=== PATIENT | female | born 1950 | race Caucasian/White ===

== ENCOUNTER 2018-02-01 13:38 | Inpatient (IN) | payer MEDICARE, BC ==
[2018-02-01] MEDS ORDERED: Famotidine 20 MG/2 ML SDV IVPUSH ONE (13:44)
[2018-02-01] MEDS ORDERED: Aspirin 81 MG Tab.Chew CHEW ONE (13:44)
[2018-02-01] MEDS ORDERED: Ticagrelor 90 MG Tab PO ONE (13:44)
--- NOTE | 2018-02-01 13:44 | EDM.PDOC ---
ED HPI GENERAL MEDICAL PROBLEM - General Chief Complaint: Chest Pain Stated Complaint: CP, n&V Time Seen by Provider: 02/01/18 13:40 Source of Information: Reports: Family (Spine, [id number], Odalys), Old Records ([facility] chart/EMR) History Limitations: Reports: No Limitations - History of Present Illness INITIAL COMMENTS - FREE TEXT/NARRATIVE: The patient was brought to the emergency room via private automobile by her and [id number] for evaluation of multiple complaints, including nonspecific retrosternal chest discomfort radiating to the mid back since about noon today with symptoms associated with some diaphoresis, moderate to severe dizziness, mild orthostasis and recurrent nausea/emeses with 6-10 previous episodes of emesis, including 2 episodes in the emergency room. The patient did have some dizziness and mild chest pain-type symptoms with onset of dizziness about 4 days ago. with symptoms intermittent in nature. The patient did have some nausea without emesis yesterday with no known exposure to infection, food poisoning, etc.. The patient denies any heart flutter, orthopnea, paresthesias, recent decreased exercise tolerance, or any other anginal-type symptoms. No recent history of abdominal pain, heartburn, diarrhea, melena, gross hematochezia, or any food intolerance, including fatty foods, etc.. She did have a normal bowel movement yesterday. The patient also denies any recent fever , cough, wheezing, dyspnea, etc.. No history of recent headaches, visual changes , diplopia, change in mental status, or other change in neurological status. The patient's does have diabetes and does check his Accu-Cheks with the patient having a home Accu-Chek of only 42 mg percent at about 13:00 hours, however glucose monitor strips are somewhat old by their history. No history of recent headaches, visual changes, diplopia, change in mental status, or other change in neurological status. Onset: Gradual Onset Date: 01/29/18 Duration: Getting Worse, Intermittent Location: Reports: Neck, Chest, Abdomen, Back (Mid posterior thoracic region as above), Radiates to. Denies: Head, Face, Pelvis, Upper Extremity, Left, Upper Extremity, Right Quality: Reports: Ache, Stabbing (Brief in nature with episodes of emesis.) Severity: Mild Improves with: Reports: None Worsens with: Reports: None Context: Reports: Other (As above) Associated Symptoms: Reports: Chest Pain, Diaphoresis, Nausea/Vomiting, Weakness (Nonspecific generalized). Denies: Confusion, Cough, Fever/Chills, Headaches, Loss of Appetite, Malaise, Seizure, Shortness of Breath, Syncope Treatments MEDICAL CLAIMS ASSISTANT: Reports: Other (see below) (None) Middle Chest Pain Score (Numeric/FACES): 5 Generalized Pain Score (Numeric/FACES): 5 - Related Data Allergies Allergy/AdvReac Type Severity Reaction Status Date / Time sulfamethoxazole Allergy Difficulty Verified 02/01/18 13:40 [From Bactrim] Swallowing trimethoprim [From Bactrim] Allergy Difficulty Verified 02/01/18 13:40 Swallowing Home Meds: Home Meds Citalopram Hydrobromide [Celexa] 40 mg PO DAILY 02/01/18 [History] Flaxseed Oil 1 cap PO DAILY 02/01/18 [History] Lutein/Minerals/Vit A,C & E [Ocuvite] 1 tab PO DAILY 02/01/18 [History] Multivit with Calcium,Iron,Min [Multivitamins Q-[id number]] 1 tab PO DAILY [History] Past Medical History HEENT History: Reports: Impaired Vision, Other (See Below). Denies: Allergic Rhinitis, Cataract, Glaucoma, Hard of Hearing, Macular Degeneration, Retinal Detachment Other HEENT History: Patient wears glasses. Dry eye syndrome. Cardiovascular History: Reports: High Cholesterol, Other (See Below). Denies: Afib, Aneurysm, Arrhythmia, Blood Clots/VTE/DVT, CAD, Heart Failure, Heart Murmur, Hypertension, [place], Syncope Other Cardiovascular History: Borderline Hyperlipidemia with no current medical therapy. Respiratory History: Denies: Asthma, COPD, Intubation, Previous, PE, Pneumothorax, Sleep Apnea Gastrointestinal History: Reports: Other (See Below). Denies: Bowel Obstruction , Celiac Disease, Cholelithiasis, Chronic Constipation, Chronic Diarrhea, Fecal Incontinence, Gastritis, GERD, GI Bleed, Hepatitis, Hiatal Hernia, Inflammatory Bowel Disease, Irritable Bowel Syndrome, Jaundice, Pancreatitis, PUD Other Gastrointestinal History: Benign small left-sided hepatic cysts by CT scan in September 2015 as below Genitourinary History: Reports: Hydronephrosis, UTI, Recurrent, Other (See Below ). Denies: Acute Renal Failure, Chronic Renal Insuffiency, Renal Calculus, STD , Urinary Incontinence Other Genitourinary History: History of benign borderline bilateral hydronephrosis by abdominal ultrasound in August 2015 with subsequent negative workup as below AUTOMAT WATCHER History: Reports: . Denies: Dysfunctional Uterine Bleeding, Endometriosis, Fibroids, Polycystic Ovaries, Spontaneous : 3 Para: 3 LMP (Approximate): Other (See Below) Other OB/BYN History: Menopause about age 55. Full term without complications during pregnancies or deliveries Musculoskeletal History: Reports: Arthritis, Back Pain, Chronic, Neck Pain, Chronic, Osteoarthritis, Osteoporosis, Other (See Below). Denies: Amputation, Fracture, Gout, RA, SLE Other Musculoskeletal History: Mild scoliosis Neurological History: Reports: Other (See Below). Denies: Cerebral Aneurysms, Concussion, CVA, Headaches, Chronic, Head Trauma, Migraines, MS, Neuropathy, Peripheral, Parkinson's, Seizure, TIA Other Neuro History: Restless leg syndrome by history with no current medical therapy Psychiatric History: Reports: Anxiety, Depression, Psych Hospitalization(s). Denies: Abuse, Victim of, ADD, ADHD, Addiction, PTSD, Suicide Attempt, Suicidal Ideation Endocrine/Metabolic History: Reports: Osteopenia, Osteoporosis. Denies: Diabetes, Gestational, Diabetes, Type I, Diabetes, Type II, Diabetes Mellitus, Type 3c, Hypothyroidism, IDDM Hematologic History: Reports: None. Denies: Anemia, B12 Deficiency, Blood Transfusion(s), Iron Deficiency Immunologic History: Reports: None. Denies: AIDS, HIV, SLE Oncologic (Cancer) History: Reports: None. Denies: Basal Cell Carcinoma, Breast , Cervix, Hodgkin's Lymphoma, Leukemia, Lymphoma, Malignant Melanoma, Non- Hodgkin's Lymphoma, Ovarian, Squamous Cell Carcinoma, Uterine Dermatologic History: Reports: None. 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 Denies : C-Difficile, Meningitis, Mononucleosis, MRSA, Mumps, Pertussis (Whooping Cough ), Rheumatic Fever, Rubella, Scarlet Fever, TB, VRE - Past Surgical History Head Surgeries/Procedures: Reports: None HEENT Surgical History: Reports: None. Denies: Adenoidectomy, Cataract Surgery , Eye Surgery, Laser Surgery, LASIK, Myringotomy w Tube(s), Naso-Sinus Surgery, Oral Surgery, Tonsillectomy Cardiovascular Surgical History: Reports: None. Denies: Varicose Respiratory Surgical History: Reports: None. Denies: Thoracentesis GI Surgical History: Reports: None. Denies: Appendectomy, Cholecystectomy, Colonoscopy, EGD, Hernia, Abdominal, Hernia, Inguinal, Hernia Repair/Other Female Surgical History: Reports: Cystoscopy, Other (See Below). Denies: Breast Biopsy, Section, D&C, Salpingo-Oophorectomy, Tubal Ligation Other Female Surgeries/Procedures: Possible cystoscopy at about age 11 secondary to recurrent UTIs Endocrine Surgical History: Reports: None. Denies: Thyroid Biopsy Neurological Surgical History: Denies: C-Spine, Discectomy, Laminectomy, Lumbar Spine, Sacral Spine, Spinal Fusion, Thoracic Spine, Vertebroplasty Musculoskeletal Surgical History: Reports: None. Denies: Arthroscopic Procedure , Carpal Tunnel, Ganglion Cyst, Joint Replacement, ORIF, Shoulder Surgery Oncologic Surgical History: Reports: None Dermatological Surgical History: Reports: Other (See Below) Other Dermatological Surgeries/Procedures: Excision of benign sebaceous cyst from the head 2 - Past Imaging History Past Imaging History: Reports: CAT Scan (CT scan of the abdomen and pelvis on ), DEXA Scan (03/26/06), Mammogram (Last mammogram on 04/03/17), Ultrasound ( Abdominal and pelvic ultrasounds with additional ultrasound of the abdominal aorta on 08/20/05) Social & Family History - Family History HEENT: Reports: Glaucoma, Macular Degeneration, Other (See Below). Denies: Retinal Detachment Other HEENT Family History: Mother with glaucoma and macular degeneration. Sister with corneal transplant at about age 73 Cardiac: Reports: CAD, High Cholesterol, Hypertension, [place], Other (See Below). Denies: Afib, Arrhythmia, Blood Clots/VTE/DVT, Bypass, Heart Failure, Stent, Syncope Other Cardiac Family History: Father with possible acute [place] in his 70s. Hyperlipidemia and hypertension in mom and 3 sons. Respiratory: Reports: Asthma, Other (See Below). Denies: COPD, PE, Pneumothorax , Sleep Apnea Other Respiratory Family Hisory: Son and granddaughter with asthma. Father with COPD with history of tobacco use GI: Reports: Cholelithiasis, Other (See Below). Denies: Celiac Disease, Colon Polyps, GERD, GI bleed, Inflammatory Bowel Disease, Irritable Bowel Syndrome, PUD Other GI Family History: Mother with nonspecific cholagenous colitis. Sisters 2 with cholecystectomies. : Reports: Renal Calculus, Renal Disease/Insufficiency, Other (See Below). Denies: Dialysis Other Family History: Father with history of nephrolithiasis and congenital renal agenesis. Granddaughter with ureteral duplex OBGYN: Reports: Fibroids, Other (See Below). Denies: Endometriosis, Recurrent Spontaneous Other OBGYN Family History: Mother with history of hysterectomy secondary to fibroids Musculoskeletal: Reports: None. Denies: Arthritis, Gout, Osteoarthritis, RA, SLE Neurological: Reports: Alzheimers Disease, CVA, Dementia, Seizure, TIA, Other ( See Below). Denies: Migraines, MS, Parkinson's Other Neurological Family History: Mother with history of restless leg syndrome , CVAs and TIAs with history of organic brain syndrome. Psychiatric: Denies: Abuse, Victim of, ADD, ADHD, Anxiety, Depression, Psych Hospitalization(s), Psychosis, PTSD, Suicide Attempt Endocrine/Metabolic: Reports: Diabetes, Type I, Hypothyroidism, IDDM, Other ( See Below). Denies: Diabetes, type II Other Endocrine/Metabolic Family History: Granddaughter with type I IDDM diagnosed at age 9. Sister with hypothyroidism. Hematologic: Reports: None. Denies: Anemia, SLE, Transfusion Reaction Immunologic: Reports: None. Denies: AIDS, HIV, SLE Dermatologic: Reports: None. Denies: Eczema, Psoriasis Oncologic: Reports: Colon, Metastatic, Other (See Below). Denies: Breast, Hodgkin's Lymphoma, Leukemia, Lymphoma, Non-Hodgkin's Lymphoma, Ovarian, Skin, Uterine Other Oncologic Family History: Father with fatal unknown type of primary cancer with pulmonary metastases in his late 70s. Maternal grandfather with fatal colon cancer in his 80s. - Tobacco Use Smoking Status *Q: Never Smoker Tobacco Use Within Last Twelve Months: No Used Tobacco, but Quit: No Smoking Cessation Information Provided To Patient: No Second Hand Smoke Exposure: No Second Hand Smoke Education Provided: No - Caffeine Use Caffeine Use: Reports: Soda (4 sodas per day). Denies: Coffee, Energy Drinks, Other - Alcohol Use Alcohol Use History: Yes Days Per Week of Alcohol Use: 0 (No previous DWIs, problems with alcohol abuse, etc.) Number of Drinks Per Day: 1 Number of Drinks Per Day Comment: Usually half a wine cooler for holidays Total Drinks Per Week: 0 Alcohol Use in Last Twelve Months: Yes Alcohol Use Frequency: Rarely - Recreational Drug Use Recreational Drug Use: No Drug Use in Last 12 Months: No Recreational Drug Type: Denies: Amphetamines (Speed), Cocaine, Heroin, LSD (Acid ), Marijuana/Hashish, Methamphetamine, Morphine, Oxycodone - Living Situation & Occupation Living situation: Reports: (1971, 3 children) 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 ED EXAM, GENERAL - Physical Exam Exam: See Below Exam Limited By: No Limitations General Appearance: Alert, WD/WN, No Apparent Distress, Anxious (Mild to moderate) Eye Exam: Bilateral Eye: EOMI, Normal Inspection (No nystagmus. Patient wearing glasses), PERRL Ears: Normal External Exam, Normal Canal, Hearing Grossly Normal, Normal TMs Nose: Normal Inspection, Normal Mucosa, No Blood. No: Clear Rhinorrhea Throat/Mouth: Normal Inspection, Normal Lips, Normal Teeth, Normal Gums, Normal Oropharynx, Normal Voice, No Airway Compromise. No: Dysphagia, Perioral Cyanosis Head: Atraumatic, Normocephalic. No: Facial Swelling, Facial Tenderness, Sinus Tenderness Neck: Normal Inspection, Supple, Non-Tender, Full Range of Motion. No: Carotid Bruit, Lymphadenopathy (L), Lymphadenopathy (R), Thyromegaly Respiratory/Chest: No Respiratory Distress, Lungs Clear, Normal Breath Sounds, No Accessory Muscle Use, Chest Non-Tender. No: Pleural Rub, Retractions Cardiovascular: Normal Peripheral Pulses, Regular Rate, Rhythm, No Edema, No Gallop, No JVD, No Murmur, No Rub. No: Gallop/S3, Gallop/S4, Friction Rub Peripheral Pulses: 2+: Radial (L), Radial (R), Dorsalis Pedis (L), Dorsalis Pedis (R) GI/Abdominal: Normal Bowel Sounds, Soft, Non-Tender, No Organomegaly, No Distention, No Abnormal Bruit, No Mass, Pelvis Stable. No: Guarding (Female) Exam: Deferred Rectal (Female) Exam: Deferred Back Exam: Normal Inspection, Full Range of Motion. No: CVA Tenderness (L), CVA Tenderness (R), Muscle Spasm Extremities: Normal Inspection, Normal Range of Motion, Non-Tender, No Pedal Edema, Normal Capillary Refill. No: Hilary's Sign Neurological: Alert, Oriented, CN II-XII Intact, Normal Cognition, Normal Gait, Normal Reflexes (Negative Babinski's), No Motor/Sensory Deficits Psychiatric: Anxious (Mild to moderate), Depressed Mood (Borderline with adequate eye contact) Skin Exam: Warm, Dry, Intact, Normal Color, No Rash. No: Diaphoretic, Ecchymosis, Wound/Incision Lymphatic: No Adenopathy EKG INTERPRETATION EKG Date: 02/01/18 Time: 13:43 Rhythm: NSR Rate (Beats/Min): 75 [place]: Normal (Left cardiac axis) P-Wave: Enlarged (Mild diffuse biphasic P waves with mild poor R-wave progression in the anterior leads) QRS: Normal (QRS interval of 0.08 seconds representing repolarization changes with T-wave inversion in leads aVL, V1, and V2) ST-T: Other (As above) QT: Normal [place]/PQ Interval: 0.18 seconds Comparison: NA - No Prior EKG EKG Interpretation Comments: 1. Possible anterior wall cardiac ischemia 2. Repolarization changes 3. Borderline left atrial enlargement Course - Vital Signs Last Recorded V/S: Last Vital Signs Temp 35.9 C 02/01/18 13:40 Pulse 65 02/01/18 14:16 Resp 15 02/01/18 14:16 BP 144/91 H 02/01/18 14:16 Pulse Ox 100 02/01/18 14:16 Vital Signs - 24 hr 02/01/18 02/01/18 02/01/18 13:40 14:16 14:30 Temperature [ 35.9 C Temporal] Pulse, 63 65 68 Peripheral [ Right Pulse Oximetry] Respiratory 18 15 14 Rate Blood Pressure 135/67 144/91 H 154/66 H [Right Upper Arm] O2 Sat by Pulse 100 100 100 Oximetry 02/01/18 14:45 Temperature [ Temporal] Pulse, 60 Peripheral [ Right Pulse Oximetry] Respiratory 13 Rate Blood Pressure 136/60 [Right Upper Arm] O2 Sat by Pulse 100 Oximetry - Orders/Labs/Meds Orders: Active Orders 24 hr Category Date Time Status Blood Glucose Check, Bedside [RC] STAT Care 02/01/18 13:49 Active Cardiac Monitoring [RC] . DIRECTED Care 02/01/18 13:44 Active EKG Documentation Completion [RC] ASDIRECTED Care 02/01/18 13:44 Active Oxygen Therapy, ED [RC] CONTINUOUS Care 02/01/18 13:44 Active Peripheral IV Care [RC] . DIRECTED Care 02/01/18 13:44 Active Pulse Oximetry [RC] CONTINUOUS Care 02/01/18 13:44 Active Up With Assistance [RC] PFP Care 02/01/18 13:44 Active Vital Signs [RC] PFP Care 02/01/18 13:44 Active Nothing per Oral Now Diet [DIET] Diet 02/01/18 Breakfast Active Abdomen Series w Chest 1V [CR] Stat Exams 02/01/18 13:48 Ordered Sodium Chloride 0.9% [Saline Flush] Med 02/01/18 13:44 Active 10 ml FLUSH ASDIRECTED PRN Obtain Past Medical Record [OM.PC] Urgent Oth 02/01/18 13:44 Active Peripheral IV Insertion Adult [OM.PC] Stat Oth 02/01/18 13:44 Ordered Resuscitation Status Stat Resus Stat 02/01/18 13:44 Ordered Medication Orders Sodium Chloride (Saline Flush) 10 ml FLUSH ASDIRECTED PRN PRN Reason: Keep Vein Open Last Admin: 02/01/18 14:26 Dose: 10 ml Admin: 02/01/18 13:51 Dose: 10 ml Labs: Laboratory Tests 02/01/18 02/01/18 02/01/18 Range/Units 13:42 13:42 13:42 WBC 7.3 (4.0-10.2) K/uL RBC 4.06 (3.77-5.09) M/uL Hgb 11.4 L (11.7-15.5) g/dL Hct 33.9 L (34.0-46.0) % MCV 83.5 L (84.0-98.0) fL MCH 28.1 L (28.2-33.3) pg MCHC 33.6 (31.7-36.0) g/dL RDW 13.3 (11.2-14.1) % Plt Count 234 (150-350) K/uL Neut % (Auto) 55.2 (45.0-80.0) % Lymph % (Auto) 35.1 (10.0-50.0) % [place] % (Auto) 8.3 (2.0-14.0) % Eos % (Auto) 1.0 (0.0-5.0) % Baso % (Auto) 0.4 (0.0-2.0) % Neut # (Auto) 4.05 (1.40-7.00) K/uL Lymph # (Auto) 2.57 (0.50-3.50) K/uL [place] # (Auto) 0.61 (0.00-1.00) K/uL Eos # (Auto) 0.07 (0.00-0.50) K/uL Baso # (Auto) 0.03 (0.00-0.20) K/uL PT 10.7 (9.8-11.7) SEC INR 1.0 APTT 22.9 (22.1-29.8) SEC D-Dimer, Quantitative < 100 (0-400) ng/mL Sodium (136-145) mmol/L Potassium (3.5-5.1) mmol/L Chloride (98-107) mmol/L Carbon Dioxide (21.0-32.0) mmol/L BUN (7-18) mg/dL Creatinine (0.51-1.17) mg/dL Est Cr Clr Drug Dosing mL/min Estimated GFR (MDRD) mL/min Glucose (74-106) mg/dL Lactic Acid (0.4-2.0) mmol/L Uric Acid (2.6-7.2) mg/dL Calcium (8.5-10.1) mg/dL Magnesium (1.8-2.4) mg/dL Total Bilirubin (0.2-1.0) mg/dL AST (15-37) U/L ALT (12-78) U/L Alkaline Phosphatase (46-116) IU/L Creatine Kinase (26-308) U/L Creatine Kinase Index (0.0-2.5) % CK-MB (CK-2) (0.00-3.60) ng/mL Troponin I (0.000-0.056) ng/mL NT-Pro-B Natriuret Pep (0-125) pg/mL Total Protein (6.4-8.2) g/dL Albumin (3.4-5.0) g/dL Amylase (25-115) U/L Lipase (73-393) U/L TSH, Ultra Sensitive (0.358-3.740) mIU/mL 02/01/18 02/01/18 Range/Units 13:42 13:42 WBC (4.0-10.2) K/uL RBC (3.77-5.09) M/uL Hgb (11.7-15.5) g/dL Hct (34.0-46.0) % MCV (84.0-98.0) fL MCH (28.2-33.3) pg MCHC (31.7-36.0) g/dL RDW (11.2-14.1) % Plt Count (150-350) K/uL Neut % (Auto) (45.0-80.0) % Lymph % (Auto) (10.0-50.0) % [place] % (Auto) (2.0-14.0) % Eos % (Auto) (0.0-5.0) % Baso % (Auto) (0.0-2.0) % Neut # (Auto) (1.40-7.00) K/uL Lymph # (Auto) (0.50-3.50) K/uL [place] # (Auto) (0.00-1.00) K/uL Eos # (Auto) (0.00-0.50) K/uL Baso # (Auto) (0.00-0.20) K/uL PT (9.8-11.7) SEC INR APTT (22.1-29.8) SEC D-Dimer, Quantitative (0-400) ng/mL Sodium 140 (136-145) mmol/L Potassium 3.9 (3.5-5.1) mmol/L Chloride 103 (98-107) mmol/L Carbon Dioxide 21.4 (21.0-32.0) mmol/L BUN 16 (7-18) mg/dL Creatinine 0.68 (0.51-1.17) mg/dL Est Cr Clr Drug Dosing 67.32 mL/min Estimated GFR (MDRD) > 60 mL/min Glucose 119 H (74-106) mg/dL Lactic Acid 2.6 H (0.4-2.0) mmol/L Uric Acid 2.7 (2.6-7.2) mg/dL Calcium 9.0 (8.5-10.1) mg/dL Magnesium 1.9 (1.8-2.4) mg/dL Total Bilirubin 0.4 (0.2-1.0) mg/dL AST 30 (15-37) U/L ALT 31 (12-78) U/L Alkaline Phosphatase 77 (46-116) IU/L Creatine Kinase 71 (26-308) U/L Creatine Kinase Index 1.5 (0.0-2.5) % CK-MB (CK-2) 1.10 (0.00-3.60) ng/mL Troponin I 0.000 (0.000-0.056) ng/mL NT-Pro-B Natriuret Pep 77 (0-125) pg/mL Total Protein 7.4 (6.4-8.2) g/dL Albumin 4.0 (3.4-5.0) g/dL Amylase 62 (25-115) U/L Lipase 120 (73-393) U/L TSH, Ultra Sensitive 1.712 (0.358-3.740) mIU/mL Stat Accu-Chek on patient's arrival 111 mg percent Meds: Medications Generic Name Dose Route Start Last Admin Trade Name Freq PRN Reason Stop Dose Admin Sodium Chloride 10 ml 02/01/18 13:44 02/01/18 14:26 Saline Flush FLUSH 10 ml ASDIRECTED PRN Administration Keep Vein Open Discontinued Medications Generic Name Dose Route Start Last Admin Trade Name Freq PRN Reason Stop Dose Admin Aspirin 324 mg 02/01/18 13:44 02/01/18 13:53 Aspirin CHEW 02/01/18 13:45 324 mg ONETIME ONE Administration Aspirin Confirm 02/01/18 13:52 02/01/18 13:58 Aspirin Administered 02/01/18 13:53 Not Given Dose 324 mg .ROUTE .STK-MED ONE Famotidine 40 mg 02/01/18 13:44 02/01/18 13:52 Pepcid IVPUSH 02/01/18 13:45 40 mg ONETIME ONE Administration Meclizine HCl 25 mg 02/01/18 14:22 02/01/18 14:25 Antivert PO 02/01/18 14:23 25 mg ONETIME ONE Administration Metoclopramide HCl 10 mg 02/01/18 14:22 02/01/18 14:26 Reglan IVPUSH 02/01/18 14:23 10 mg ONETIME ONE Administration Ondansetron HCl 4 mg 02/01/18 13:46 02/01/18 13:51 Zofran IVPUSH 02/01/18 13:47 4 mg ONETIME ONE Administration Ticagrelor 180 mg 02/01/18 13:44 02/01/18 13:53 Brilinta PO 02/01/18 13:45 180 mg ONETIME ONE Administration - Radiology Interpretation Free Text/Narrative:: Acute abdominal x-rays shows evidence of moderate diffuse stool with nonspecific bowel gaseous pattern, however no evidence of free air, ileus, obstruction, intra-abdominal calcifications, etc. No cardiomegaly, pulmonary infiltrates, CHF, COPD, pneumothorax, etc. Application Development Project Manager shows normal sinus rhythm with average heart rate in the 60s and 70s with no ectopy or arrhythmia Departure - Departure Time of Disposition: 15:08 Disposition: Admitted As Inpatient 67 Clinical Impression: Mixed anxiety depressive disorder, Lactic acid increased, Restless leg syndrome , Osteoarthritis Chest pain Qualifiers: Chest pain type: unspecified Qualified Code(s): R07.9 - Chest pain, unspecified Nausea and vomiting Qualifiers: Vomiting type: unspecified Vomiting Intractability: non-intractable Qualified Code(s): R11.2 - Nausea with vomiting, unspecified Anemia Qualifiers: Anemia type: unspecified type Qualified Code(s): D64.9 - Anemia, unspecified - Discharge Information Referrals: Kev Montano PA [Primary Care Provider] - Forms: ED Department Discharge Care Plan Goals: See plan - Problem List & Annotations (1) Chest pain SNOMED Code(s): 28211005 Code(s): R07.9 - CHEST PAIN, UNSPECIFIED Status: Acute Priority: High Onset Date: 01/15/18 Annotation/Comment:: Possible anterior wall cardiac ischemia. Nonspecific chest pain-type symptoms without true anginal complaints. Chest pain protocol was initiated in the emergency room. Negative cardiac enzymes. Initiate standard rule out [place] orders. Symptoms seem to be more related to her GI complaints. IV Pepcid given as GI prophylaxis. Cardiology consultation depending on her clinical course. Consider Cardiolite stress test on an outpatient basis secondary to some cardiac risk factors. Qualifiers: Chest pain type: unspecified Qualified Code(s): R07.9 - Chest pain, unspecified (2) Nausea and vomiting SNOMED Code(s): 84717733 Code(s): R11.2 - NAUSEA WITH VOMITING, UNSPECIFIED Status: Acute Priority : High Onset Date: ~01/22/18 Annotation/Comment:: Probable low viral gastroenteritis. No leukocytosis. Overall good results with medications in the emergency room as above. Abdominal checks with vitals. Qualifiers: Vomiting type: unspecified Vomiting Intractability: non-intractable Qualified Code(s): R11.2 - Nausea with vomiting, unspecified (3) Lactic acid increased SNOMED Code(s): 65514827 Code(s): E87.2 - ACIDOSIS Status: Acute Priority: High Onset Date: Annotation/Comment:: Lactic acid will be repeated with neck set of blood work and in the a.m. Note fever, clinical evidence of sepsis, etc. (4) Anemia SNOMED Code(s): 647935366 Code(s): D64.9 - ANEMIA, UNSPECIFIED Status: Acute Priority: Medium Onset Date: 02/01/18 Annotation/Comment:: Mild anemia. Workup during this hospitalization with therapy depending on these results. Qualifiers: Anemia type: unspecified type Qualified Code(s): D64.9 - Anemia, unspecified (5) Mixed anxiety depressive disorder SNOMED Code(s): 577777256 Code(s): F41.8 - OTHER SPECIFIED ANXIETY DISORDERS Status: Chronic Priority: Medium Annotation/Comment:: Moderate control. Continue to observe closely by her regular provider. (6) Osteoarthritis SNOMED Code(s): 298276228 Code(s): M19.90 - UNSPECIFIED OSTEOARTHRITIS, UNSPECIFIED SITE Status: Chronic Priority: Medium Current Visit: Yes Annotation/Comment:: Stable by patient history Qualifiers: Osteoarthritis location: multiple joints Osteoarthritis type: primary Qualified Code(s): M15.0 - Primary generalized (osteo)arthritis (7) Restless leg syndrome SNOMED Code(s): 87331127 Code(s): G25.81 - RESTLESS LEGS SYNDROME Status: Chronic Priority: Medium Current Visit: Yes Annotation/Comment:: Moderate Control by her 's history. Consider outpatient sleep study once current symptoms have resolved. She would also benefit from update of her yearly exam and preventive health care, including strong recommendations for colonoscopy [facility], etc. - Problem List Review Problem List Initiated/Reviewed/Updated: Yes - My Orders Last 24 Hours: My Active Orders 02/01/18 13:44 Cardiac Monitoring [RC] . DIRECTED EKG Documentation Completion [RC] ASDIRECTED Oxygen Therapy, ED [RC] CONTINUOUS Peripheral IV Care [RC] . DIRECTED Pulse Oximetry [RC] CONTINUOUS Up With Assistance [RC] PFP Vital Signs [RC] PFP Sodium Chloride 0.9% [Saline Flush] 10 ml FLUSH ASDIRECTED PRN Obtain Past Medical Record [OM.PC] Urgent Peripheral IV Insertion Adult [OM.PC] Stat Resuscitation Status Stat 02/01/18 13:48 Abdomen Series w Chest 1V [CR] Stat 02/01/18 13:49 Blood Glucose Check, Bedside [RC] STAT 02/01/18 Breakfast Nothing per Oral Now Diet [DIET] - Assessment/Plan Admission H&P: Please use this note as an admission H&P Last 24 Hours: My Active Orders 02/01/18 13:44 Cardiac Monitoring [RC] . DIRECTED EKG Documentation Completion [RC] ASDIRECTED Oxygen Therapy, ED [RC] CONTINUOUS Peripheral IV Care [RC] . DIRECTED Pulse Oximetry [RC] CONTINUOUS Up With Assistance [RC] PFP Vital Signs [RC] PFP Sodium Chloride 0.9% [Saline Flush] 10 ml FLUSH ASDIRECTED PRN Obtain Past Medical Record [OM.PC] Urgent Peripheral IV Insertion Adult [OM.PC] Stat Resuscitation Status Stat 02/01/18 13:48 Abdomen Series w Chest 1V [CR] Stat 02/01/18 13:49 Blood Glucose Check, Bedside [RC] STAT 02/01/18 Breakfast Nothing per Oral Now Diet [DIET] Assessment:: As above Plan: As above. Extensive precautions were given to the patient and her family, who are in agreement with the treatment plan. The patient will require about 3-4 days of inpatient/acute care secondary to multiple health problems as above.
[2018-02-01] MEDS ORDERED: Ondansetron 4 MG/2 ML SDV IVPUSH ONE (13:46)
[2018-02-01] MEDS: Sodium Chloride 0.9% 10 ML Syringe FLUSH PRN ×4 (13:51→18:30)
[2018-02-01] MEDS ORDERED: Aspirin 81 MG Tab.Chew ONE (13:52)
[2018-02-01 14:18] LABS: CHLORIDE,CL 103 mmol/L (98-107); SODIUM,NA 140 mmol/L (136-145)
[2018-02-01] MEDS ORDERED: Meclizine 25 MG Tab PO ONE (14:22)
[2018-02-01] MEDS ORDERED: Metoclopramide 10 MG/2 ML SDV IVPUSH ONE (14:22)
[2018-02-01] MEDS: Lactated Ringers 1,000 ML IV SCH (15:34)
[2018-02-01] MEDS: Pantoprazole 40 MG Vial IVPUSH SCH (17:04)
[2018-02-01] MEDS: Ondansetron 4 MG/2 ML SDV IVPUSH PRN (18:30)
[2018-02-01] MEDS ORDERED: Polyvinyl Alcohol 1.4% Ophth Soln 15 ML Bottle EYEBOTH PRN (18:49)
[2018-02-02] MEDS: Ondansetron 4 MG/2 ML SDV IVPUSH PRN ×3 (00:37→20:27)
[2018-02-02] MEDS: Sodium Chloride 0.9% 10 ML Syringe FLUSH PRN ×5 (00:37→20:29)
[2018-02-02] MEDS: Lactated Ringers 1,000 ML IV SCH (00:38)
[2018-02-02] MEDS: Pantoprazole 40 MG Vial IVPUSH SCH ×2 (05:31→17:07)
[2018-02-02] MEDS: Meclizine 25 MG Tab PO PRN ×2 (08:16→17:59)
[2018-02-02] MEDS: Citalopram 20 MG Tab PO SCH (08:16)
[2018-02-02 08:27] LABS: CHLORIDE,CL 104 mmol/L (98-107); SODIUM,NA 140 mmol/L (136-145)
--- NOTE | 2018-02-02 10:30 | PCM.PN ---
- General Info Date of Service: 02/02/18 Admission Dx/Problem (Free Text): 1. Chest pain 2. Nausea/emesis Functional Status: Reports: Ambulating (However some dystaxia secondary to her labyrinthitis), Urinating, New Symptoms (Left neck, shoulder and scapular pain no history of fall or injury). Denies: Tolerating Diet (Gagging with oral intake with 1 emesis yesterday evening at supper), Incentive Spirometry Pain Score: 10 (Left scapular as above) - Review of Systems General: Reports: Appetite (Food intolerance as above). Denies: Fever, Weakness , Fatigue, Malaise, Chills, Night Sweats HEENT: Reports: Glasses, Other (Dizziness with head movement or standing). Denies: Dysphasia, Ear Pain, Eye Pain, Headaches, Sinus Congestion, Sore Throat , Rhinitis, Visual Changes Pulmonary: Reports: No Symptoms. Denies: Shortness of Breath, Pleuritic Chest Pain, Cough, Hemoptysis, Wheezing Cardiovascular: Reports: Lightheadedness (With dizziness). Denies: Chest Pain, Palpitations, Dyspnea on Exertion, Orthopnea, PND, Edema Gastrointestinal: Reports: Decreased Appetite (As above), Nausea (With head movement), Vomiting (Gagging but no repeat emesis), Other (Normal bowel movement this morning by her history). Denies: Abdominal Pain, Constipation, Diarrhea, Difficulty Swallowing, Flatus, Hematochezia, Melena Genitourinary: Reports: No Symptoms. Denies: Dysuria, Frequency, Burning, Pain , Urgency, Incontinence, Hematuria, Retention, Flank Pain Musculoskeletal: Reports: Neck Pain, Shoulder Pain (Left), Joint Pain (As above) . Denies: Arm Pain, Hand Pain, Back Pain, Leg Pain Skin: Reports: No Symptoms. Denies: Jaundice, Pallor, Diaphoresis, Bruising Neurological: Reports: Dizziness, Difficulty Walking (Secondary to vertigo), Weakness (Nonspecific), Gait Disturbance (Secondary to vertigo). Denies: No Symptoms, Confusion, Headache, Numbness, Tingling, Trouble Speaking Psychiatric: Reports: Depression, Anxiety. Denies: Confusion, Agitation, Hallucinations - Patient Data Vitals - Most Recent: Last Vital Signs Temp 36.3 C 02/02/18 08:00 Pulse 72 02/02/18 08:00 Resp 17 02/02/18 08:00 BP 129/62 02/02/18 08:00 Pulse Ox 100 02/02/18 08:00 Vital Signs - 24 hr 02/01/18 02/01/18 02/01/18 13:40 14:16 14:30 Temperature [ Oral] Temperature [ 35.9 C Temporal] Pulse, 63 65 68 Peripheral [ Right Pulse Oximetry] Respiratory 18 15 14 Rate Blood Pressure [Left Upper Arm ] Blood Pressure 135/67 144/91 H 154/66 H [Right Upper Arm] O2 Sat by Pulse 100 100 100 Oximetry 02/01/18 02/01/18 02/01/18 14:45 14:58 15:12 Temperature [ Oral] Temperature [ Temporal] Pulse, 60 61 Peripheral [ Right Pulse Oximetry] Respiratory 13 13 Rate Blood Pressure [Left Upper Arm ] Blood Pressure 136/60 146/57 H [Right Upper Arm] O2 Sat by Pulse 100 100 100 Oximetry 02/01/18 02/01/18 02/01/18 17:13 19:51 22:46 Temperature [ 36.4 C 36.2 C Oral] Temperature [ 36.4 C Temporal] Pulse, 69 66 68 Peripheral [ Right Pulse Oximetry] Respiratory 18 18 16 Rate Blood Pressure 140/62 131/54 L 134/54 L [Left Upper Arm ] Blood Pressure [Right Upper Arm] O2 Sat by Pulse 100 100 100 Oximetry 02/02/18 02/02/18 02/02/18 00:00 04:00 08:00 Temperature [ 36.6 C Oral] Temperature [ 36.3 C Temporal] Pulse, 71 71 72 Peripheral [ Right Pulse Oximetry] Respiratory 16 16 17 Rate Blood Pressure 127/56 L 138/60 129/62 [Left Upper Arm ] Blood Pressure [Right Upper Arm] O2 Sat by Pulse 100 100 100 Oximetry Weight - Most Recent: 56.245 kg I&O - Last 24 Hours: Intake & Output 02/01/18 02/02/18 02/02/18 22:59 06:59 14:59 Intake Total 1348 Output Total 600 Balance 748 Imaging Impressions - Last 24 Hours: site monitor shows normal sinus rhythm with average heart rate in the 60s with no ectopy or arrhythmia Acute abdominal x-rays, shows persistent moderate diffuse stool with only mildly increased bowel gaseous pattern with no ileus, obstruction, free air, CHF , pulmonary infiltrates, or cardiomegaly. Mild prominence of the proximal aortic arch and aortic valve calcification. Mild COPD changes noted.. Mild to moderate osteoarthritic changes including mild scoliosis. Telephone consultation at 08:14 a.m. this morning with the radiology department at [facility] with preliminary verbal report of noncontrast CT scan of the head. Negative findings with subsequent written report also received.. Lab Results Last 24 Hours: Laboratory Results - last 24 hr 02/01/18 02/01/18 02/01/18 Range/Units 13:42 13:42 13:42 WBC 7.3 (4.0-10.2) K/uL RBC 4.06 (3.77-5.09) M/uL Hgb 11.4 L (11.7-15.5) g/dL Hct 33.9 L (34.0-46.0) % MCV 83.5 L (84.0-98.0) fL MCH 28.1 L (28.2-33.3) pg MCHC 33.6 (31.7-36.0) g/dL RDW 13.3 (11.2-14.1) % Plt Count 234 (150-350) K/uL Neut % (Auto) 55.2 (45.0-80.0) % Lymph % (Auto) 35.1 (10.0-50.0) % [place] % (Auto) 8.3 (2.0-14.0) % Eos % (Auto) 1.0 (0.0-5.0) % Baso % (Auto) 0.4 (0.0-2.0) % Neut # (Auto) 4.05 (1.40-7.00) K/uL Lymph # (Auto) 2.57 (0.50-3.50) K/uL [place] # (Auto) 0.61 (0.00-1.00) K/uL Eos # (Auto) 0.07 (0.00-0.50) K/uL Baso # (Auto) 0.03 (0.00-0.20) K/uL PT 10.7 (9.8-11.7) SEC INR 1.0 APTT 22.9 (22.1-29.8) SEC D-Dimer, Quantitative < 100 (0-400) ng/mL Sodium (136-145) mmol/L Potassium (3.5-5.1) mmol/L Chloride (98-107) mmol/L Carbon Dioxide (21.0-32.0) mmol/L BUN (7-18) mg/dL Creatinine (0.51-1.17) mg/dL Est Cr Clr Drug Dosing mL/min Estimated GFR (MDRD) mL/min Glucose (74-106) mg/dL Hemoglobin A1c (4.3-5.7) % Lactic Acid (0.4-2.0) mmol/L Uric Acid (2.6-7.2) mg/dL Calcium (8.5-10.1) mg/dL Magnesium (1.8-2.4) mg/dL Iron (50-175) ug/dL TIBC (250-450) ug/dL % Saturation Ferritin (8-388) ng/mL Total Bilirubin (0.2-1.0) mg/dL AST (15-37) U/L ALT (12-78) U/L Alkaline Phosphatase (46-116) IU/L Creatine Kinase (26-308) U/L Creatine Kinase Index (0.0-2.5) % CK-MB (CK-2) (0.00-3.60) ng/mL Troponin I (0.000-0.056) ng/mL NT-Pro-B Natriuret Pep (0-125) pg/mL Total Protein (6.4-8.2) g/dL Albumin (3.4-5.0) g/dL Triglycerides (30-150) mg/dL Cholesterol (100-200) mg/dL LDL Cholesterol, Calc (0-100) mg/dL HDL Cholesterol (40-60) mg/dL Amylase (25-115) U/L Lipase (73-393) U/L Vitamin B12 (193-986) pg/mL Folate (8.6-58.9) ng/mL TSH, Ultra Sensitive (0.358-3.740) mIU/mL 02/01/18 02/01/18 02/01/18 Range/Units 13:42 13:42 20:35 WBC (4.0-10.2) K/uL RBC (3.77-5.09) M/uL Hgb (11.7-15.5) g/dL Hct (34.0-46.0) % MCV (84.0-98.0) fL MCH (28.2-33.3) pg MCHC (31.7-36.0) g/dL RDW (11.2-14.1) % Plt Count (150-350) K/uL Neut % (Auto) (45.0-80.0) % Lymph % (Auto) (10.0-50.0) % [place] % (Auto) (2.0-14.0) % Eos % (Auto) (0.0-5.0) % Baso % (Auto) (0.0-2.0) % Neut # (Auto) (1.40-7.00) K/uL Lymph # (Auto) (0.50-3.50) K/uL [place] # (Auto) (0.00-1.00) K/uL Eos # (Auto) (0.00-0.50) K/uL Baso # (Auto) (0.00-0.20) K/uL PT (9.8-11.7) SEC INR APTT (22.1-29.8) SEC D-Dimer, Quantitative (0-400) ng/mL Sodium 140 (136-145) mmol/L Potassium 3.9 (3.5-5.1) mmol/L Chloride 103 (98-107) mmol/L Carbon Dioxide 21.4 (21.0-32.0) mmol/L BUN 16 (7-18) mg/dL Creatinine 0.68 (0.51-1.17) mg/dL Est Cr Clr Drug Dosing 67.32 mL/min Estimated GFR (MDRD) > 60 mL/min Glucose 119 H (74-106) mg/dL Hemoglobin A1c (4.3-5.7) % Lactic Acid 2.6 H (0.4-2.0) mmol/L Uric Acid 2.7 (2.6-7.2) mg/dL Calcium 9.0 (8.5-10.1) mg/dL Magnesium 1.9 (1.8-2.4) mg/dL Iron (50-175) ug/dL TIBC (250-450) ug/dL % Saturation Ferritin (8-388) ng/mL Total Bilirubin 0.4 (0.2-1.0) mg/dL AST 30 (15-37) U/L ALT 31 (12-78) U/L Alkaline Phosphatase 77 (46-116) IU/L Creatine Kinase 71 67 (26-308) U/L Creatine Kinase Index 1.5 2.1 (0.0-2.5) % CK-MB (CK-2) 1.10 1.40 (0.00-3.60) ng/mL Troponin I 0.000 0.004 (0.000-0.056) ng/mL NT-Pro-B Natriuret Pep 77 (0-125) pg/mL Total Protein 7.4 (6.4-8.2) g/dL Albumin 4.0 (3.4-5.0) g/dL Triglycerides (30-150) mg/dL Cholesterol (100-200) mg/dL LDL Cholesterol, Calc (0-100) mg/dL HDL Cholesterol (40-60) mg/dL Amylase 62 (25-115) U/L Lipase 120 (73-393) U/L Vitamin B12 (193-986) pg/mL Folate (8.6-58.9) ng/mL TSH, Ultra Sensitive 1.712 (0.358-3.740) mIU/mL 02/01/18 02/02/18 02/02/18 Range/Units 20:35 07:27 07:27 WBC 6.5 (4.0-10.2) K/uL RBC 3.96 (3.77-5.09) M/uL Hgb 11.1 L (11.7-15.5) g/dL Hct 33.1 L (34.0-46.0) % MCV 83.6 L (84.0-98.0) fL MCH 28.0 L (28.2-33.3) pg MCHC 33.5 (31.7-36.0) g/dL RDW 13.2 (11.2-14.1) % Plt Count 235 (150-350) K/uL Neut % (Auto) 76.4 (45.0-80.0) % Lymph % (Auto) 14.6 (10.0-50.0) % [place] % (Auto) 8.6 (2.0-14.0) % Eos % (Auto) 0.2 (0.0-5.0) % Baso % (Auto) 0.2 (0.0-2.0) % Neut # (Auto) 4.98 (1.40-7.00) K/uL Lymph # (Auto) 0.95 (0.50-3.50) K/uL [place] # (Auto) 0.56 (0.00-1.00) K/uL Eos # (Auto) 0.01 (0.00-0.50) K/uL Baso # (Auto) 0.01 (0.00-0.20) K/uL PT (9.8-11.7) SEC INR APTT (22.1-29.8) SEC D-Dimer, Quantitative (0-400) ng/mL Sodium 140 (136-145) mmol/L Potassium 3.4 L (3.5-5.1) mmol/L Chloride 104 (98-107) mmol/L Carbon Dioxide 23.8 (21.0-32.0) mmol/L BUN 11 (7-18) mg/dL Creatinine 0.67 (0.51-1.17) mg/dL Est Cr Clr Drug Dosing 68.30 mL/min Estimated GFR (MDRD) > 60 mL/min Glucose 114 H (74-106) mg/dL Hemoglobin A1c (4.3-5.7) % Lactic Acid 1.2 (0.4-2.0) mmol/L Uric Acid (2.6-7.2) mg/dL Calcium 9.0 (8.5-10.1) mg/dL Magnesium (1.8-2.4) mg/dL Iron (50-175) ug/dL TIBC (250-450) ug/dL % Saturation Ferritin (8-388) ng/mL Total Bilirubin 0.5 (0.2-1.0) mg/dL AST 22 (15-37) U/L ALT 25 (12-78) U/L Alkaline Phosphatase 68 (46-116) IU/L Creatine Kinase 66 (26-308) U/L Creatine Kinase Index 2.0 (0.0-2.5) % CK-MB (CK-2) 1.30 (0.00-3.60) ng/mL Troponin I 0.000 (0.000-0.056) ng/mL NT-Pro-B Natriuret Pep (0-125) pg/mL Total Protein 6.9 (6.4-8.2) g/dL Albumin 3.4 (3.4-5.0) g/dL Triglycerides 52 (30-150) mg/dL Cholesterol 223 H (100-200) mg/dL LDL Cholesterol, Calc 92 (0-100) mg/dL HDL Cholesterol 121 H (40-60) mg/dL Amylase (25-115) U/L Lipase (73-393) U/L Vitamin B12 442 (193-986) pg/mL Folate 19.1 (8.6-58.9) ng/mL TSH, Ultra Sensitive (0.358-3.740) mIU/mL 02/02/18 02/02/18 02/02/18 Range/Units 07:27 07:27 07:27 WBC (4.0-10.2) K/uL RBC (3.77-5.09) M/uL Hgb (11.7-15.5) g/dL Hct (34.0-46.0) % MCV (84.0-98.0) fL MCH (28.2-33.3) pg MCHC (31.7-36.0) g/dL RDW (11.2-14.1) % Plt Count (150-350) K/uL Neut % (Auto) (45.0-80.0) % Lymph % (Auto) (10.0-50.0) % [place] % (Auto) (2.0-14.0) % Eos % (Auto) (0.0-5.0) % Baso % (Auto) (0.0-2.0) % Neut # (Auto) (1.40-7.00) K/uL Lymph # (Auto) (0.50-3.50) K/uL [place] # (Auto) (0.00-1.00) K/uL Eos # (Auto) (0.00-0.50) K/uL Baso # (Auto) (0.00-0.20) K/uL PT (9.8-11.7) SEC INR APTT (22.1-29.8) SEC D-Dimer, Quantitative (0-400) ng/mL Sodium (136-145) mmol/L Potassium (3.5-5.1) mmol/L Chloride (98-107) mmol/L Carbon Dioxide (21.0-32.0) mmol/L BUN (7-18) mg/dL Creatinine (0.51-1.17) mg/dL Est Cr Clr Drug Dosing mL/min Estimated GFR (MDRD) mL/min Glucose (74-106) mg/dL Hemoglobin A1c 5.9 H (4.3-5.7) % Lactic Acid 2.3 H (0.4-2.0) mmol/L Uric Acid (2.6-7.2) mg/dL Calcium (8.5-10.1) mg/dL Magnesium (1.8-2.4) mg/dL Iron 47 L (50-175) ug/dL TIBC 357 (250-450) ug/dL % Saturation [id number] Ferritin 13 (8-388) ng/mL Total Bilirubin (0.2-1.0) mg/dL AST (15-37) U/L ALT (12-78) U/L Alkaline Phosphatase (46-116) IU/L Creatine Kinase (26-308) U/L Creatine Kinase Index (0.0-2.5) % CK-MB (CK-2) (0.00-3.60) ng/mL Troponin I (0.000-0.056) ng/mL NT-Pro-B Natriuret Pep (0-125) pg/mL Total Protein (6.4-8.2) g/dL Albumin (3.4-5.0) g/dL Triglycerides (30-150) mg/dL Cholesterol (100-200) mg/dL LDL Cholesterol, Calc (0-100) mg/dL HDL Cholesterol (40-60) mg/dL Amylase (25-115) U/L Lipase (73-393) U/L Vitamin B12 (193-986) pg/mL Folate (8.6-58.9) ng/mL TSH, Ultra Sensitive (0.358-3.740) mIU/mL Laboratory Tests 02/01/18 02/01/18 02/01/18 Range/Units 13:42 13:42 13:42 WBC 7.3 (4.0-10.2) K/uL RBC 4.06 (3.77-5.09) M/uL Hgb 11.4 L (11.7-15.5) g/dL Hct 33.9 L (34.0-46.0) % MCV 83.5 L (84.0-98.0) fL MCH 28.1 L (28.2-33.3) pg MCHC 33.6 (31.7-36.0) g/dL RDW 13.3 (11.2-14.1) % Plt Count 234 (150-350) K/uL Neut % (Auto) 55.2 (45.0-80.0) % Lymph % (Auto) 35.1 (10.0-50.0) % [place] % (Auto) 8.3 (2.0-14.0) % Eos % (Auto) 1.0 (0.0-5.0) % Baso % (Auto) 0.4 (0.0-2.0) % Neut # (Auto) 4.05 (1.40-7.00) K/uL Lymph # (Auto) 2.57 (0.50-3.50) K/uL [place] # (Auto) 0.61 (0.00-1.00) K/uL Eos # (Auto) 0.07 (0.00-0.50) K/uL Baso # (Auto) 0.03 (0.00-0.20) K/uL PT 10.7 (9.8-11.7) SEC INR 1.0 APTT 22.9 (22.1-29.8) SEC D-Dimer, Quantitative < 100 (0-400) ng/mL Sodium (136-145) mmol/L Potassium (3.5-5.1) mmol/L Chloride (98-107) mmol/L Carbon Dioxide (21.0-32.0) mmol/L BUN (7-18) mg/dL Creatinine (0.51-1.17) mg/dL Est Cr Clr Drug Dosing mL/min Estimated GFR (MDRD) mL/min Glucose (74-106) mg/dL Hemoglobin A1c (4.3-5.7) % Lactic Acid (0.4-2.0) mmol/L Uric Acid (2.6-7.2) mg/dL Calcium (8.5-10.1) mg/dL Magnesium (1.8-2.4) mg/dL Iron (50-175) ug/dL TIBC (250-450) ug/dL % Saturation Ferritin (8-388) ng/mL Total Bilirubin (0.2-1.0) mg/dL AST (15-37) U/L ALT (12-78) U/L Alkaline Phosphatase (46-116) IU/L Creatine Kinase (26-308) U/L Creatine Kinase Index (0.0-2.5) % CK-MB (CK-2) (0.00-3.60) ng/mL Troponin I (0.000-0.056) ng/mL NT-Pro-B Natriuret Pep (0-125) pg/mL Total Protein (6.4-8.2) g/dL Albumin (3.4-5.0) g/dL Triglycerides (30-150) mg/dL Cholesterol (100-200) mg/dL LDL Cholesterol, Calc (0-100) mg/dL HDL Cholesterol (40-60) mg/dL Amylase (25-115) U/L Lipase (73-393) U/L Vitamin B12 (193-986) pg/mL Folate (8.6-58.9) ng/mL TSH, Ultra Sensitive (0.358-3.740) mIU/mL 02/01/18 02/01/18 02/01/18 Range/Units 13:42 13:42 20:35 WBC (4.0-10.2) K/uL RBC (3.77-5.09) M/uL Hgb (11.7-15.5) g/dL Hct (34.0-46.0) % MCV (84.0-98.0) fL MCH (28.2-33.3) pg MCHC (31.7-36.0) g/dL RDW (11.2-14.1) % Plt Count (150-350) K/uL Neut % (Auto) (45.0-80.0) % Lymph % (Auto) (10.0-50.0) % [place] % (Auto) (2.0-14.0) % Eos % (Auto) (0.0-5.0) % Baso % (Auto) (0.0-2.0) % Neut # (Auto) (1.40-7.00) K/uL Lymph # (Auto) (0.50-3.50) K/uL [place] # (Auto) (0.00-1.00) K/uL Eos # (Auto) (0.00-0.50) K/uL Baso # (Auto) (0.00-0.20) K/uL PT (9.8-11.7) SEC INR APTT (22.1-29.8) SEC D-Dimer, Quantitative (0-400) ng/mL Sodium 140 (136-145) mmol/L Potassium 3.9 (3.5-5.1) mmol/L Chloride 103 (98-107) mmol/L Carbon Dioxide 21.4 (21.0-32.0) mmol/L BUN 16 (7-18) mg/dL Creatinine 0.68 (0.51-1.17) mg/dL Est Cr Clr Drug Dosing 67.32 mL/min Estimated GFR (MDRD) > 60 mL/min Glucose 119 H (74-106) mg/dL Hemoglobin A1c (4.3-5.7) % Lactic Acid 2.6 H (0.4-2.0) mmol/L Uric Acid 2.7 (2.6-7.2) mg/dL Calcium 9.0 (8.5-10.1) mg/dL Magnesium 1.9 (1.8-2.4) mg/dL Iron (50-175) ug/dL TIBC (250-450) ug/dL % Saturation Ferritin (8-388) ng/mL Total Bilirubin 0.4 (0.2-1.0) mg/dL AST 30 (15-37) U/L ALT 31 (12-78) U/L Alkaline Phosphatase 77 (46-116) IU/L Creatine Kinase 71 67 (26-308) U/L Creatine Kinase Index 1.5 2.1 (0.0-2.5) % CK-MB (CK-2) 1.10 1.40 (0.00-3.60) ng/mL Troponin I 0.000 0.004 (0.000-0.056) ng/mL NT-Pro-B Natriuret Pep 77 (0-125) pg/mL Total Protein 7.4 (6.4-8.2) g/dL Albumin 4.0 (3.4-5.0) g/dL Triglycerides (30-150) mg/dL Cholesterol (100-200) mg/dL LDL Cholesterol, Calc (0-100) mg/dL HDL Cholesterol (40-60) mg/dL Amylase 62 (25-115) U/L Lipase 120 (73-393) U/L Vitamin B12 (193-986) pg/mL Folate (8.6-58.9) ng/mL TSH, Ultra Sensitive 1.712 (0.358-3.740) mIU/mL 02/01/18 02/02/18 02/02/18 Range/Units 20:35 07:27 07:27 WBC 6.5 (4.0-10.2) K/uL RBC 3.96 (3.77-5.09) M/uL Hgb 11.1 L (11.7-15.5) g/dL Hct 33.1 L (34.0-46.0) % MCV 83.6 L (84.0-98.0) fL MCH 28.0 L (28.2-33.3) pg MCHC 33.5 (31.7-36.0) g/dL RDW 13.2 (11.2-14.1) % Plt Count 235 (150-350) K/uL Neut % (Auto) 76.4 (45.0-80.0) % Lymph % (Auto) 14.6 (10.0-50.0) % [place] % (Auto) 8.6 (2.0-14.0) % Eos % (Auto) 0.2 (0.0-5.0) % Baso % (Auto) 0.2 (0.0-2.0) % Neut # (Auto) 4.98 (1.40-7.00) K/uL Lymph # (Auto) 0.95 (0.50-3.50) K/uL [place] # (Auto) 0.56 (0.00-1.00) K/uL Eos # (Auto) 0.01 (0.00-0.50) K/uL Baso # (Auto) 0.01 (0.00-0.20) K/uL PT (9.8-11.7) SEC INR APTT (22.1-29.8) SEC D-Dimer, Quantitative (0-400) ng/mL Sodium 140 (136-145) mmol/L Potassium 3.4 L (3.5-5.1) mmol/L Chloride 104 (98-107) mmol/L Carbon Dioxide 23.8 (21.0-32.0) mmol/L BUN 11 (7-18) mg/dL Creatinine 0.67 (0.51-1.17) mg/dL Est Cr Clr Drug Dosing 68.30 mL/min Estimated GFR (MDRD) > 60 mL/min Glucose 114 H (74-106) mg/dL Hemoglobin A1c (4.3-5.7) % Lactic Acid 1.2 (0.4-2.0) mmol/L Uric Acid (2.6-7.2) mg/dL Calcium 9.0 (8.5-10.1) mg/dL Magnesium (1.8-2.4) mg/dL Iron (50-175) ug/dL TIBC (250-450) ug/dL % Saturation Ferritin (8-388) ng/mL Total Bilirubin 0.5 (0.2-1.0) mg/dL AST 22 (15-37) U/L ALT 25 (12-78) U/L Alkaline Phosphatase 68 (46-116) IU/L Creatine Kinase 66 (26-308) U/L Creatine Kinase Index 2.0 (0.0-2.5) % CK-MB (CK-2) 1.30 (0.00-3.60) ng/mL Troponin I 0.000 (0.000-0.056) ng/mL NT-Pro-B Natriuret Pep (0-125) pg/mL Total Protein 6.9 (6.4-8.2) g/dL Albumin 3.4 (3.4-5.0) g/dL Triglycerides 52 (30-150) mg/dL Cholesterol 223 H (100-200) mg/dL LDL Cholesterol, Calc 92 (0-100) mg/dL HDL Cholesterol 121 H (40-60) mg/dL Amylase (25-115) U/L Lipase (73-393) U/L Vitamin B12 442 (193-986) pg/mL Folate 19.1 (8.6-58.9) ng/mL TSH, Ultra Sensitive (0.358-3.740) mIU/mL 02/02/18 02/02/18 02/02/18 Range/Units 07:27 07:27 07:27 WBC (4.0-10.2) K/uL RBC (3.77-5.09) M/uL Hgb (11.7-15.5) g/dL Hct (34.0-46.0) % MCV (84.0-98.0) fL MCH (28.2-33.3) pg MCHC (31.7-36.0) g/dL RDW (11.2-14.1) % Plt Count (150-350) K/uL Neut % (Auto) (45.0-80.0) % Lymph % (Auto) (10.0-50.0) % [place] % (Auto) (2.0-14.0) % Eos % (Auto) (0.0-5.0) % Baso % (Auto) (0.0-2.0) % Neut # (Auto) (1.40-7.00) K/uL Lymph # (Auto) (0.50-3.50) K/uL [place] # (Auto) (0.00-1.00) K/uL Eos # (Auto) (0.00-0.50) K/uL Baso # (Auto) (0.00-0.20) K/uL PT (9.8-11.7) SEC INR APTT (22.1-29.8) SEC D-Dimer, Quantitative (0-400) ng/mL Sodium (136-145) mmol/L Potassium (3.5-5.1) mmol/L Chloride (98-107) mmol/L Carbon Dioxide (21.0-32.0) mmol/L BUN (7-18) mg/dL Creatinine (0.51-1.17) mg/dL Est Cr Clr Drug Dosing mL/min Estimated GFR (MDRD) mL/min Glucose (74-106) mg/dL Hemoglobin A1c 5.9 H (4.3-5.7) % Lactic Acid 2.3 H (0.4-2.0) mmol/L Uric Acid (2.6-7.2) mg/dL Calcium (8.5-10.1) mg/dL Magnesium (1.8-2.4) mg/dL Iron 47 L (50-175) ug/dL TIBC 357 (250-450) ug/dL % Saturation 13.03482 Ferritin 13 (8-388) ng/mL Total Bilirubin (0.2-1.0) mg/dL AST (15-37) U/L ALT (12-78) U/L Alkaline Phosphatase (46-116) IU/L Creatine Kinase (26-308) U/L Creatine Kinase Index (0.0-2.5) % CK-MB (CK-2) (0.00-3.60) ng/mL Troponin I (0.000-0.056) ng/mL NT-Pro-B Natriuret Pep (0-125) pg/mL Total Protein (6.4-8.2) g/dL Albumin (3.4-5.0) g/dL Triglycerides (30-150) mg/dL Cholesterol (100-200) mg/dL LDL Cholesterol, Calc (0-100) mg/dL HDL Cholesterol (40-60) mg/dL Amylase (25-115) U/L Lipase (73-393) U/L Vitamin B12 (193-986) pg/mL Folate (8.6-58.9) ng/mL TSH, Ultra Sensitive (0.358-3.740) mIU/mL Rogerio Results Last 24 Hours: Microbiology 02/02/18 06:15 Stool Occult Blood (ROGERIO) - Final Stool / Feces NEGATIVE OCCULT BLOOD Med Orders - Current: Current Medications Acetaminophen (Tylenol) 650 mg PO Q4H PRN PRN Reason: Pain Artificial Tears (Liquitears 1.4% Ophth Soln) 0 ml EYEBOTH QID PRN PRN Reason: Dry Eyes Citalopram Hydrobromide (Celexa) 40 mg PO DAILY [facility] Last Admin: 02/02/18 08:16 Dose: 40 mg Lactated Ringer's (Ringers, Lactated) 1,000 mls @ 100 mls/hr IV ASDIRECTED [facility] Last Admin: 02/02/18 00:38 Dose: 100 mls/hr Meclizine HCl (Antivert) 25 mg PO Q6H PRN PRN Reason: Dizziness Last Admin: 02/02/18 08:16 Dose: 25 mg Ondansetron HCl (Zofran) 4 mg IVPUSH Q6H PRN PRN Reason: Nausea/Vomiting Last Admin: 02/02/18 06:03 Dose: 4 mg Pantoprazole Sodium (Protonix Iv) 40 mg IVPUSH Q12H [facility]AYLA Last Admin: 02/02/18 05:31 Dose: 40 mg Sodium Chloride (Saline Flush) 10 ml FLUSH ASDIRECTED PRN PRN Reason: Keep Vein Open Last Admin: 02/02/18 06:03 Dose: 10 ml Sodium Chloride (Saline Flush) 10 ml FLUSH Q12HR PRN PRN Reason: Keep Vein Open Last Admin: 02/01/18 18:30 Dose: 10 ml Temazepam (Restoril) 15 mg PO BEDTIME PRN PRN Reason: Insomnia Discontinued Medications Aspirin (Aspirin) 324 mg CHEW ONETIME ONE Stop: 02/01/18 13:45 Last Admin: 02/01/18 13:53 Dose: 324 mg Aspirin (Aspirin) Confirm Administered Dose 324 mg .ROUTE .STK-MED ONE Stop: 02/01/18 13:53 Last Admin: 02/01/18 13:58 Dose: Not Given Famotidine (Pepcid) 40 mg IVPUSH ONETIME ONE Stop: 02/01/18 13:45 Last Admin: 02/01/18 13:52 Dose: 40 mg Meclizine HCl (Antivert) 25 mg PO ONETIME ONE Stop: 02/01/18 14:23 Last Admin: 02/01/18 14:25 Dose: 25 mg Metoclopramide HCl (Reglan) 10 mg IVPUSH ONETIME ONE Stop: 02/01/18 14:23 Last Admin: 02/01/18 14:26 Dose: 10 mg Ondansetron HCl (Zofran) 4 mg IVPUSH ONETIME ONE Stop: 02/01/18 13:47 Last Admin: 02/01/18 13:51 Dose: 4 mg Ticagrelor (Brilinta) 180 mg PO ONETIME ONE Stop: 02/01/18 13:45 Last Admin: 02/01/18 13:53 Dose: 180 mg - Exam Quality Assessment: Supplemental Oxygen, DVT Prophylaxis. No: Urine Catheter, Skin Breakdown, Restraints General: Alert, Oriented, Cooperative, No Acute Distress HEENT: Pupils Equal, Pupils Reactive, EOMI, Mucous Membr. Moist/[place], Other (No nystagmus with head movement but moderate vertigo). No: Scleral Icterus Neck: Supple, Trachea Midline, No JVD, No Thyromegaly. No: Lymphadenopathy Lungs: Clear to Auscultation, Normal Respiratory Effort. No: Rub Cardiovascular: Regular Rate, Regular Rhythm, No Murmurs. No: Gallops, Rubs GI/Abdominal Exam: Normal Bowel Sounds, Soft, Non-Tender, No Organomegaly, No Distention, No Abnormal Bruit, No Mass, Pelvis Stable. No: Guarding (Female) Exam: Deferred Back Exam: Normal Inspection, Full Range of Motion. No: CVA Tenderness (L), CVA Tenderness (R), Muscle Spasm Extremities: Normal Range of Motion, No Pedal Edema, Normal Capillary Refill, Arm Pain (Some nonspecific left scapular muscle spasms and discomfort with range of motion with no instability, etc.), Limited Range of Motion (Mild secondary to scapular discomfort). No: Hilary's Sign Peripheral Pulses: 2+: Radial (L), Radial (R), Dorsalis Pedis (L), Dorsalis Pedis (R) Skin: Warm, Dry, Intact. No: Ecchymosis Neurological: Other (Some dystaxia with standing, etc. by nurses history. Negative Babinski's, finger to nose, and pronator rotation tests. No evidence of facial paresis, tongue deviation, orthostasis, etc.. Excellent reverse thought processes.) Psy/Mental Status: Anxious (Moderate), Depressed (Moderate). No: Agitated, Suicidal Ideation, Homicidal Ideation, Hallucinations, Withdrawal Symptoms EKG INTERPRETATION EKG Date: 02/02/18 Time: 08:02 Rhythm: NSR Rate (Beats/Min): 68 Blain: Normal (Neutral cardiac axis) P-Wave: Enlarged (Moderate diffuse biphasic P waves with new possible pulmonary hypertension by EKG) QRS: Normal (0.07 seconds with T-wave inversion in leads aVL and V1 with improved borderline T-wave inversion in lead V2) ST-T: Other (As above) QT: Normal Comparison: Change From Previous EKG (As above since 02/01/18) EKG Interpretation Comments: 1. Possible anterior wall cardiac ischemia 2. Left atrial enlargement 3. Possible pulmonary hypertension - Problem List & Annotations (1) Chest pain SNOMED Code(s): 03962163 Code(s): R07.9 - CHEST PAIN, UNSPECIFIED Status: Acute Priority: High Current Visit: Yes Onset Date: 01/29/18 Qualifiers: Chest pain type: unspecified Qualified Code(s): R07.9 - Chest pain, unspecified Annotation/Comment:: Negative workup for acute GA with possible anterior wall cardiac ischemia, although improved EKG today. Nonspecific chest pain-type symptoms has resolved without true anginal complaints. Chest pain protocol was initiated in the emergency room. Negative serial cardiac enzymes. Symptoms seem to be more related to her GI complaints. IV Pepcid given as GI prophylaxis. Cardiology consultation depending on her clinical course. Cardiolite stress test on an outpatient basis secondary to some cardiac risk factors. Note excellent HDL and lipid panel this morning with glycosylated hemoglobin of 5.9% (2) Labyrinthitis SNOMED Code(s): 81802717 Code(s): H83.09 - LABYRINTHITIS, UNSPECIFIED EAR Status: Acute Priority: High Current Visit: Yes Onset Date: ~01/29/18 Qualifiers: Laterality: unspecified laterality Qualified Code(s): H83.09 - Labyrinthitis, unspecified ear Annotation/Comment:: IV Solu-Medrol to be given today with consideration of repeat dosage tomorrow. Continue meclizine on a when necessary basis for now. Initiate neurological checks with vitals, however normal CT scan this morning as above. (3) Nausea and vomiting SNOMED Code(s): 79510894 Code(s): R11.2 - NAUSEA WITH VOMITING, UNSPECIFIED Status: Acute Priority : High Current Visit: Yes Onset Date: ~01/29/18 Qualifiers: Vomiting type: unspecified Vomiting Intractability: non-intractable Qualified Code(s): R11.2 - Nausea with vomiting, unspecified Annotation/Comment:: Probable viral labyrinthitis as above with questionable additional viral gastroenteritis. No leukocytosis. Note additional meclizine required this morning as above. Significant constipation by x-rays, however normal bowel movement this morning by her history. Overall good results with medications in the emergency room as above. Abdominal checks with vitals normal to this point. (4) Lactic acid increased SNOMED Code(s): 65749595 Code(s): E87.2 - ACIDOSIS Status: Acute Priority: High Current Visit: Yes Onset Date: 02/01/18 Annotation/Comment:: Lactic acid normalized yesterday evening, however somewhat increased this morning. Lactic acid will be repeated with next set of blood work in the a.m. No fever, clinical evidence of sepsis, etc. (5) Anemia SNOMED Code(s): 466606341 Code(s): D64.9 - ANEMIA, UNSPECIFIED Status: Acute Priority: Medium Current Visit: Yes Onset Date: 02/01/18 Qualifiers: Anemia type: iron deficiency Iron deficiency anemia type: unspecified iron deficiency Qualified Code(s): D50.9 - Iron deficiency anemia, unspecified Annotation/Comment:: Mild stable anemia with newly diagnosed iron deficiency anemia. Initiate iron supplementation once her labyrinthitis and GI symptoms have improved. Vitamin B-12 and folic acid levels are normal. (6) Mixed anxiety depressive disorder SNOMED Code(s): 005447505 Code(s): F41.8 - OTHER SPECIFIED ANXIETY DISORDERS Status: Chronic Priority: Medium Current Visit: Yes Annotation/Comment:: Moderate control. Continue to observe closely during this hospitalization and by her regular provider. (7) Osteoarthritis SNOMED Code(s): 461523569 Code(s): M19.90 - UNSPECIFIED OSTEOARTHRITIS, UNSPECIFIED SITE Status: Chronic Priority: Medium Current Visit: Yes Qualifiers: Osteoarthritis location: multiple joints Osteoarthritis type: primary Qualified Code(s): M15.0 - Primary generalized (osteo)arthritis Annotation/Comment:: Nonspecific left scapular discomfort this morning with no history of fall, injury, etc. Patient has used Flexeril in the past, however this must be avoided at this time secondary current meclizine therapy. Her arthritis is otherwise stable by patient history. Topical treatments for now. (8) Restless leg syndrome SNOMED Code(s): 54977495 Code(s): G25.81 - RESTLESS LEGS SYNDROME Status: Chronic Priority: Medium Current Visit: Yes Annotation/Comment:: Moderate Control by her 's history. Consider outpatient sleep study once current symptoms have resolved. She would also benefit from update of her yearly exam and preventive health care, including strong recommendations for colonoscopy [facility], etc. (9) Hypokalemia SNOMED Code(s): 70691625 Code(s): E87.6 - HYPOKALEMIA Status: Acute Priority: High Current Visit : Yes Onset Date: 02/02/18 Annotation/Comment:: Adjust IV fluids to contain additional potassium with one additional oral potassium chloride tablet today secondary to her GI symptoms.. Consider additional oral potassium supplement depending on her response. (10) COPD (chronic obstructive pulmonary disease) SNOMED Code(s): 53576774 Code(s): J44.9 - CHRONIC OBSTRUCTIVE PULMONARY DISEASE, UNSPECIFIED Status : Chronic Priority: Medium Current Visit: Yes Qualifiers: COPD type: emphysema Emphysema type: panlobular Qualified Code(s): J43.1 - Panlobular emphysema Annotation/Comment:: COPD by chest x-ray. Consider PFTs on an outpatient basis - Problem List Review Problem List Initiated/Reviewed/Updated: Yes - My Orders Last 24 Hours: My Active Orders 02/01/18 13:44 Cardiac Monitoring [RC] Q2HR Peripheral IV Care [RC] . DIRECTED Sodium Chloride 0.9% [Saline Flush] 10 ml FLUSH ASDIRECTED PRN Peripheral IV Insertion Adult [OM.PC] Stat Resuscitation Status Stat 02/01/18 13:48 Abdomen Series w Chest 1V [CR] Stat 02/01/18 15:12 Communication Order [RC] 08,20 Height and Weight [RC] DAILY Intake and Output Strict [RC] ASDIRECTED Oxygen Therapy [RC] 2300 Pulse Oximetry [RC] ASDIRECTED Up With Assistance [RC] ASDIRECTED Acetaminophen [Tylenol] 650 mg PO Q4H PRN Sodium Chloride 0.9% [Saline Flush] 10 ml FLUSH Q12HR PRN Temazepam [Restoril] 15 mg PO BEDTIME PRN Antiembolic Hose [OM.PC] Routine DVT/VTE Prophylaxis Reflex [OM.PC] Routine GM Immunization Reflex [OM.PC] Click To Edit 02/01/18 15:13 Antiembolic Devices [RC] 08,20 Communication, Vaccine [RC] PER UNIT ROUTINE VTE/DVT Education [RC] PER UNIT ROUTINE 02/01/18 15:15 Communication Order [RC] Q4HR 02/01/18 15:18 Ondansetron [Zofran] 4 mg IVPUSH Q6H PRN 02/01/18 15:30 Lactated Ringers [Ringers, Lactated] 1,000 ml IV ASDIRECTED 02/01/18 18:00 Pantoprazole [ProTONIX IV] 40 mg IVPUSH Q12H 02/01/18 18:49 Polyvinyl Alcohol [LiquiTears 1.4% Ophth Soln] 0 ml EYEBOTH QID PRN 02/01/18 21:26 Vital Signs [RC] Q4HR 02/02/18 05:11 EKG Documentation Completion [RC] ASDIRECTED Abdomen Series w Chest 1V [CR] Routine 02/02/18 06:15 H PYLORI STOOL ANTIGEN [MREF] ONETIME OCCULT BLOOD DIAGNOSTIC [OP] Stat 02/02/18 07:23 Head wo Cont [CT] Routine 02/02/18 07:24 Meclizine [Antivert] 25 mg PO Q6H PRN 02/02/18 08:00 Citalopram [Celexa] 40 mg PO DAILY - Assessment Assessment:: As above - Plan Plan:: As above. Extensive precautions were given to the patient and her , who are in agreement with the treatment plan. Anticipate an additional 2-3 days of inpatient care
[2018-02-02] MEDS ORDERED: methylPREDNISolone Sodium Succinate 125 MG/2 ML SDV IVPUSH ONE (11:00)
[2018-02-02] MEDS: Menthol/Methyl Salicylate 85 GM Tube TOP SCH ×2 (11:58→17:59)
[2018-02-02] MEDS: D5 1/2 NS w/ 40 mEq/L KCl 1,000 ML IV SCH ×2 (11:58→20:29)
[2018-02-02] MEDS ORDERED: Potassium Chloride 20 MEQ Tab.ER PO ONE (12:00)
[2018-02-02] MEDS: Acetaminophen 325 MG Tab PO PRN (20:28)
[2018-02-03] MEDS: Pantoprazole 40 MG Vial IVPUSH SCH ×2 (06:22→17:39)
[2018-02-03 08:08] LABS: CHLORIDE,CL 108 mmol/L (98-107); SODIUM,NA 140 mmol/L (136-145)
[2018-02-03] MEDS: Citalopram 20 MG Tab PO SCH (08:45)
[2018-02-03] MEDS: Menthol/Methyl Salicylate 85 GM Tube TOP SCH (08:45)
[2018-02-03] MEDS: Acetaminophen 325 MG Tab PO PRN ×4 (08:46→21:33)
[2018-02-03] MEDS: Meclizine 25 MG Tab PO PRN ×3 (08:47→21:33)
[2018-02-03] MEDS: D5 1/2 NS w/ 40 mEq/L KCl 1,000 ML IV SCH (09:15)
[2018-02-03] MEDS: Ondansetron 4 MG/2 ML SDV IVPUSH PRN ×3 (09:17→21:35)
[2018-02-03] MEDS: Sodium Chloride 0.9% 10 ML Syringe FLUSH PRN ×4 (09:18→17:40)
--- NOTE | 2018-02-03 09:38 | PCM.PN ---
- General Info Date of Service: 02/03/18 Admission Dx/Problem (Free Text): 1. Chest pain 2. Nausea/emesis Functional Status: Reports: Pain Controlled (Improved left shoulder pain with new bilateral frontal headache), Ambulating, Urinating, New Symptoms (Headache as above. Mild dysuria). Denies: Tolerating Diet (Minimal oral intake with last Zofran does history a p.m. and no recent emesis) Pain Score: 7 (Headache) - Review of Systems General: Reports: Weakness (Generalized), Appetite (Poor). Denies: Fever, Fatigue, Malaise, Chills, Night Sweats HEENT: Reports: Headaches. Denies: Ear Pain, Eye Pain, Post Nasal Drip, Sinus Congestion, Sore Throat, Rhinitis, Visual Changes Pulmonary: Reports: No Symptoms. Denies: Shortness of Breath, Pleuritic Chest Pain, Cough, Sputum Cardiovascular: Reports: No Symptoms. Denies: Chest Pain, Palpitations, Dyspnea on Exertion, Orthopnea, PND, Edema, Lightheadedness Gastrointestinal: Reports: Nausea, Other (Normal bowel movement yesterday by her history). Denies: Abdominal Pain, Constipation, Decreased Appetite, Diarrhea, Difficulty Swallowing, Flatus, Hematochezia, Melena, Vomiting Genitourinary: Reports: Dysuria, Frequency, Burning. Denies: Pain, Urgency, Incontinence, Hematuria, Retention, Flank Pain Musculoskeletal: Reports: Neck Pain (Improved), Shoulder Pain (Improved). Denies: Arm Pain, Hand Pain, Back Pain, Leg Pain Skin: Reports: Pallor. Denies: Diaphoresis, Bruising, Pruritis Neurological: Reports: Headache, Weakness. Denies: Confusion, Dizziness, Numbness, Paresthesia, Tingling, Trouble Speaking, Difficulty Walking, Gait Disturbance Psychiatric: Reports: Depression, Anxiety. Denies: Confusion, Agitation, Hallucinations - Patient Data Vitals - Most Recent: Last Vital Signs Temp 36.5 C 02/03/18 07:45 Pulse 64 02/03/18 03:58 Resp 16 02/03/18 07:45 BP 116/54 L 02/03/18 07:45 Pulse Ox 97 02/03/18 07:45 Vital Signs - 24 hr 02/02/18 02/02/18 02/02/18 12:00 18:00 20:15 Temperature [ 36.8 C 37.0 C 36.9 C Oral] Temperature [ Temporal] Pulse, 77 70 67 Peripheral [ Right Pulse Oximetry] Respiratory 16 20 18 Rate Blood Pressure 125/45 L 125/46 L 135/68 [Left Upper Arm ] O2 Sat by Pulse 99 100 100 Oximetry 02/03/18 02/03/18 02/03/18 00:00 03:58 07:45 Temperature [ 36.5 C Oral] Temperature [ 37.1 C 36.9 C Temporal] Pulse, 68 64 Peripheral [ Right Pulse Oximetry] Respiratory 16 16 16 Rate Blood Pressure 135/60 121/58 L 116/54 L [Left Upper Arm ] O2 Sat by Pulse 100 100 97 Oximetry Weight - Most Recent: 56.245 kg I&O - Last 24 Hours: Intake & Output 02/02/18 02/03/18 02/03/18 22:59 06:59 14:59 Intake Total 2340 50 Output Total 400 200 Balance 1940 -150 Imaging Impressions - Last 24 Hours: equipment monitor phototypesetting shows normal sinus rhythm with heart rate in the 60s with no ectopy or arrhythmia Lab Results Last 24 Hours: Laboratory Results - last 24 hr 02/03/18 02/03/18 02/03/18 Range/Units 06:50 06:50 06:50 WBC 7.5 (4.0-10.2) K/uL RBC 3.45 L (3.77-5.09) M/uL Hgb 9.7 L (11.7-15.5) g/dL Hct 29.6 L (34.0-46.0) % MCV 85.8 (84.0-98.0) fL MCH 28.1 L (28.2-33.3) pg MCHC 32.8 (31.7-36.0) g/dL RDW 13.5 (11.2-14.1) % Plt Count 196 (150-350) K/uL Neut % (Auto) 66.8 (45.0-80.0) % Lymph % (Auto) 20.3 (10.0-50.0) % [place] % (Auto) 12.6 (2.0-14.0) % Eos % (Auto) 0.0 (0.0-5.0) % Baso % (Auto) 0.3 (0.0-2.0) % Neut # (Auto) 5.03 (1.40-7.00) K/uL Lymph # (Auto) 1.53 (0.50-3.50) K/uL [place] # (Auto) 0.95 (0.00-1.00) K/uL Eos # (Auto) 0.00 (0.00-0.50) K/uL Baso # (Auto) 0.02 (0.00-0.20) K/uL Sodium 140 (136-145) mmol/L Potassium 4.3 (3.5-5.1) mmol/L Chloride 108 H (98-107) mmol/L Carbon Dioxide 24.7 (21.0-32.0) mmol/L BUN 9 (7-18) mg/dL Creatinine 0.69 (0.51-1.17) mg/dL Est Cr Clr Drug Dosing 66.32 mL/min Estimated GFR (MDRD) > 60 mL/min Glucose 92 (74-106) mg/dL Lactic Acid 1.1 (0.4-2.0) mmol/L Calcium 8.5 (8.5-10.1) mg/dL Creatine Kinase 87 (26-308) U/L Creatine Kinase Index 2.0 (0.0-2.5) % CK-MB (CK-2) 1.70 (0.00-3.60) ng/mL Troponin I 0.000 (0.000-0.056) ng/mL Rogerio Results Last 24 Hours: Microbiology 02/02/18 10:52 Stool Occult Blood (ROGERIO) - Final Stool / Feces NEGATIVE OCCULT BLOOD 02/02/18 06:15 Stool Occult Blood (ROGERIO) - Final Stool / Feces NEGATIVE OCCULT BLOOD Med Orders - Current: Current Medications Acetaminophen (Tylenol) 650 mg PO Q4H PRN PRN Reason: Pain Last Admin: 02/03/18 08:46 Dose: 650 mg Artificial Tears (Liquitears 1.4% Ophth Soln) 0 ml EYEBOTH QID PRN PRN Reason: Dry Eyes Citalopram Hydrobromide (Celexa) 40 mg PO DAILY [facility] Last Admin: 02/03/18 08:45 Dose: 40 mg Potassium Chloride/Dextrose/Sod Cl (D5 1/2 Ns W/ 40 Meq/L Kcl) 1,000 mls @ 100 mls/hr IV ASDIRECTED [facility] Last Admin: 02/03/18 09:15 Dose: 100 mls/hr Iopamidol (Isovue-300 (61%)) 100 ml IVPUSH ONETIME ONE Stop: 02/03/18 10:01 Meclizine HCl (Antivert) 25 mg PO Q6H PRN PRN Reason: Dizziness Last Admin: 02/03/18 08:47 Dose: 25 mg Methyl Salicylate (Icy Hot Cream) 1 gm TOP BID [facility] Last Admin: 02/03/18 08:45 Dose: 1 applic Ondansetron HCl (Zofran) 4 mg IVPUSH Q6H PRN PRN Reason: Nausea/Vomiting Last Admin: 02/03/18 09:17 Dose: 4 mg Pantoprazole Sodium (Protonix Iv) 40 mg IVPUSH Q12H [facility] Last Admin: 02/03/18 06:22 Dose: 40 mg Sodium Chloride (Saline Flush) 10 ml FLUSH ASDIRECTED PRN PRN Reason: Keep Vein Open Last Admin: 02/03/18 09:18 Dose: 10 ml Sodium Chloride (Saline Flush) 10 ml FLUSH Q12HR PRN PRN Reason: Keep Vein Open Last Admin: 02/02/18 17:07 Dose: 10 ml Temazepam (Restoril) 15 mg PO BEDTIME PRN PRN Reason: Insomnia Discontinued Medications Aspirin (Aspirin) 324 mg CHEW ONETIME ONE Stop: 02/01/18 13:45 Last Admin: 02/01/18 13:53 Dose: 324 mg Aspirin (Aspirin) Confirm Administered Dose 324 mg .ROUTE .STK-MED ONE Stop: 02/01/18 13:53 Last Admin: 02/01/18 13:58 Dose: Not Given Famotidine (Pepcid) 40 mg IVPUSH ONETIME ONE Stop: 02/01/18 13:45 Last Admin: 02/01/18 13:52 Dose: 40 mg Lactated Ringer's (Ringers, Lactated) 1,000 mls @ 100 mls/hr IV ASDIRECTED [facility] Last Admin: 02/02/18 00:38 Dose: 100 mls/hr Meclizine HCl (Antivert) 25 mg PO ONETIME ONE Stop: 02/01/18 14:23 Last Admin: 02/01/18 14:25 Dose: 25 mg Methylprednisolone Sodium Succinate (Solu-Medrol) 125 mg IVPUSH ONETIME ONE Stop: 02/02/18 11:01 Last Admin: 02/02/18 11:57 Dose: 125 mg Metoclopramide HCl (Reglan) 10 mg IVPUSH ONETIME ONE Stop: 02/01/18 14:23 Last Admin: 02/01/18 14:26 Dose: 10 mg Ondansetron HCl (Zofran) 4 mg IVPUSH ONETIME ONE Stop: 02/01/18 13:47 Last Admin: 02/01/18 13:51 Dose: 4 mg Potassium Chloride (Klor-Con M20) 20 meq PO ONETIME ONE Stop: 02/02/18 12:01 Last Admin: 02/02/18 11:58 Dose: 20 meq Ticagrelor (Brilinta) 180 mg PO ONETIME ONE Stop: 02/01/18 13:45 Last Admin: 02/01/18 13:53 Dose: 180 mg - Exam Quality Assessment: DVT Prophylaxis. No: Supplemental Oxygen, Central Line/PICC , Urine Catheter, Skin Breakdown, Restraints General: Alert, Oriented, Cooperative, Mild Distress (Secondary to symptoms and her anxiety) HEENT: Pupils Equal, Pupils Reactive, EOMI, Mucous Membr. Moist/[place]. No: Scleral Icterus Neck: Supple, Trachea Midline, No JVD, No Thyromegaly, +2 Carotid Pulse wo Bruit. No: Lymphadenopathy Lungs: Clear to Auscultation, Normal Respiratory Effort Cardiovascular: Regular Rate, Regular Rhythm, No Murmurs. No: Gallops, Rubs GI/Abdominal Exam: Normal Bowel Sounds, Soft, Non-Tender, No Organomegaly, No Distention, No Abnormal Bruit, No Mass, Pelvis Stable. No: Guarding (Female) Exam: Deferred Back Exam: Normal Inspection, Full Range of Motion. No: CVA Tenderness (L), CVA Tenderness (R) Extremities: Normal Range of Motion, No Pedal Edema, Normal Capillary Refill, Other (Improved left scapular pain and spasms). No: Hilary's Sign, Leg Pain Peripheral Pulses: 2+: Radial (L), Radial (R), Dorsalis Pedis (L), Dorsalis Pedis (R) Skin: Warm, Dry, Intact, Other (Mild pallor). No: Ecchymosis Neurological: No New Focal Deficit, Other (No clinical orthostasis) Psy/Mental Status: Alert, Anxious (Moderate to severe), Depressed (Moderate with adequate eye contact). No: Agitated, Hallucinations, Withdrawal Symptoms EKG INTERPRETATION EKG Date: 02/03/18 Time: 07:45 Rhythm: Other (Sinus bradycardia) Rate (Beats/Min): 58 [place]: Normal (Neutral) P-Wave: Present (Mild diffuse biphasic P waves) QRS: Normal (0.07 seconds with T-wave inversion in lead V1, returned and increased prominence of T-wave inversion in lead V2 and resolution of previous T -wave inversion in lead aVL) ST-T: Other (As above) QT: Normal TN/PQ Interval: 0.17 seconds Comparison: Change From Previous EKG (As above since 02/02/18) EKG Interpretation Comments: 1. Anterior wall cardiac ischemia 2. Left atrial enlargement 3. Sinus bradycardia - Problem List & Annotations (1) Chest pain SNOMED Code(s): 50680725 Code(s): R07.9 - CHEST PAIN, UNSPECIFIED Status: Acute Priority: High Current Visit: Yes Onset Date: 01/29/18 Qualifiers: Chest pain type: unspecified Qualified Code(s): R07.9 - Chest pain, unspecified Annotation/Comment:: Negative workup for acute [place] with possible anterior wall cardiac ischemia, although no chest pain or anginal type symptoms. Chest pain protocol was initiated in the emergency room. Negative serial cardiac enzymes. Symptoms seem to be more related to her GI complaints and anxiety. Cardiology consultation depending on her clinical course. Cardiolite stress test on an outpatient basis secondary to some cardiac risk factors. Note excellent HDL and lipid panel during this hospitalization with glycosylated hemoglobin of 5.9% (2) Labyrinthitis SNOMED Code(s): 92545488 Code(s): H83.09 - LABYRINTHITIS, UNSPECIFIED EAR Status: Acute Priority: High Current Visit: Yes Onset Date: ~01/29/18 Qualifiers: Laterality: unspecified laterality Qualified Code(s): H83.09 - Labyrinthitis, unspecified ear Annotation/Comment:: IV Solu-Medrol to be given yesterday with no repeat dosage for now secondary to progressive anemia. Continue meclizine on a when necessary basis for now, however significant anxiety component to her symptoms. The patient acknowledges that her current medical therapy is not working well for her anxiety or depression with further medication adjustments today. Neurological checks with vitals have been stable with however normal CT scan of the head on 02/02/18 despite headaches this morning. (3) Nausea and vomiting SNOMED Code(s): 98715724 Code(s): R11.2 - NAUSEA WITH VOMITING, UNSPECIFIED Status: Acute Priority : High Current Visit: Yes Onset Date: ~01/29/18 Qualifiers: Vomiting type: unspecified Vomiting Intractability: non-intractable Qualified Code(s): R11.2 - Nausea with vomiting, unspecified Annotation/Comment:: Probable viral labyrinthitis as above with questionable additional viral gastroenteritis. No leukocytosis. Note additional meclizine required this morning as above. Significant constipation by x-rays, however normal bowel movement yesterday by her history with negative Hemoccults 2. Note progressive anemia with known iron deficiency. Secondary to refractory symptoms CT scan of the abdomen and pelvis with IV and oral contrast will be conducted today with patient placed on the schedule for EGD and colonoscopy on . Abdominal checks with vitals normal to this point. (4) Lactic acid increased SNOMED Code(s): 27606577 Code(s): E87.2 - ACIDOSIS Status: Acute Priority: High Current Visit: Yes Onset Date: 02/01/18 Annotation/Comment:: Lactic acid normalized this morning with variable lactic acid levels during this hospitalization. No fever, clinical evidence of sepsis, etc. (5) Anemia SNOMED Code(s): 756906624 Code(s): D64.9 - ANEMIA, UNSPECIFIED Status: Acute Priority: Medium Current Visit: Yes Onset Date: 02/01/18 Qualifiers: Anemia type: iron deficiency Iron deficiency anemia type: unspecified iron deficiency Qualified Code(s): D50.9 - Iron deficiency anemia, unspecified Annotation/Comment:: Progressive anemia as above with newly diagnosed iron deficiency anemia. Initiate iron supplementation and further workup as above. Vitamin B-12 and folic acid levels are normal. (6) Mixed anxiety depressive disorder SNOMED Code(s): 224851699 Code(s): F41.8 - OTHER SPECIFIED ANXIETY DISORDERS Status: Chronic Priority: Medium Current Visit: Yes Annotation/Comment:: Moderate to poor control as above. Continue to observe closely during this hospitalization and by her regular provider. (7) Osteoarthritis SNOMED Code(s): 545278839 Code(s): M19.90 - UNSPECIFIED OSTEOARTHRITIS, UNSPECIFIED SITE Status: Chronic Priority: Medium Current Visit: Yes Qualifiers: Osteoarthritis location: multiple joints Osteoarthritis type: primary Qualified Code(s): M15.0 - Primary generalized (osteo)arthritis Annotation/Comment:: Nonspecific left scapular discomfort improved this morning with no history of fall, injury, etc. Patient has used Flexeril in the past, however this must be avoided at this time secondary current meclizine therapy. Her arthritis is otherwise stable by patient history. Topical treatments for now. Physical therapy ordered per patient's request. (8) Restless leg syndrome SNOMED Code(s): 76174636 Code(s): G25.81 - RESTLESS LEGS SYNDROME Status: Chronic Priority: Medium Current Visit: Yes Annotation/Comment:: Moderate Control by her 's history. Consider outpatient sleep study once current symptoms have resolved. She would also benefit from update of her yearly exam and preventive health care, including strong recommendations for colonoscopy [place], etc. (9) Hypokalemia SNOMED Code(s): 89245389 Code(s): E87.6 - HYPOKALEMIA Status: Acute Priority: High Current Visit : Yes Onset Date: 02/02/18 Annotation/Comment:: Resolved with aggressive IV fluids and oral supplementation yesterday and continue to observe closely. (10) COPD (chronic obstructive pulmonary disease) SNOMED Code(s): 78805580 Code(s): J44.9 - CHRONIC OBSTRUCTIVE PULMONARY DISEASE, UNSPECIFIED Status : Chronic Priority: Medium Current Visit: Yes Qualifiers: COPD type: emphysema Emphysema type: panlobular Qualified Code(s): J43.1 - Panlobular emphysema Annotation/Comment:: COPD by chest x-ray. Consider PFTs on an outpatient basis - Problem List Review Problem List Initiated/Reviewed/Updated: Yes - My Orders Last 24 Hours: My Active Orders 02/02/18 10:49 Communication Order [RC] ROUTINE 02/02/18 10:52 OCCULT BLOOD DIAGNOSTIC [OP] Routine 02/02/18 10:54 Cooling Warming Measures [RC] QSHIFT Menthol/Methyl Salicylate [Icy Hot Cream] 1 gm TOP BID Heat Therapy [OM.PC] Routine 02/02/18 10:57 Vital Signs [RC] Q6HR 02/02/18 10:58 Oxygen Therapy [RC] PRN 02/02/18 11:00 D5 1/2 NS w/ 40 mEq/L KCl 1,000 ml IV ASDIRECTED 02/02/18 Dinner [place] Diet [DIET] 02/03/18 05:11 EKG Documentation Completion [RC] ASDIRECTED 02/03/18 08:55 Abdomen Pelvis w Cont [CT] Stat 02/03/18 09:27 CULTURE URINE [RM] Routine 02/03/18 09:28 Consult to Physician [CONS] Routine URINALYSIS W/MICROSCOPIC [UA W/MICROSCOPIC] [URIN] Routine 02/03/18 09:32 Notify Provider Consults [RC] ASDIRECTED 02/03/18 10:00 Iopamidol [Isovue-300 (61%)] 100 ml IVPUSH ONETIME ONE - Assessment Assessment:: As above - Plan Plan:: As above. Extensive precautions were given to the patient and her , who are in agreement with the treatment plan. Anticipate an additional 2-3 days of inpatient care
[2018-02-03] MEDS ORDERED: Iopamidol 612 MG/ML 100 ML Bottle IVPUSH ONE (10:00)
[2018-02-03] MEDS ORDERED: Polyethylene Glycol 3350 Powder 238 GM Bot PO ONE (10:15)
[2018-02-03] MEDS: Trolamine Salicylate/Aloe Vera 10% Crm 85 GM Tube TOP SCH ×4 (10:31→20:06)
[2018-02-03] MEDS ORDERED: Iopamidol 755 Mg/ML 100 ML Bottle IVPUSH ONE (10:45)
[2018-02-03] MEDS: LORazepam 0.5 MG Tab PO SCH ×2 (11:04→17:37)
[2018-02-03] MEDS ORDERED: Ferrous Sulfate 325 MG Tab PO SCH (12:00)
[2018-02-03] MEDS: cefTRIAXone 1 GM in Sodium Chloride 0.9% 100 ML IV SCH ×2 (12:25→23:55)
[2018-02-03] MEDS ORDERED: Bisacodyl 5 MG Tab PO ONE (18:00)
[2018-02-03] MEDS: Mirtazapine 15 MG Tab PO SCH (20:07)
[2018-02-03] MEDS: Temazepam 15 MG Cap PO PRN (21:33)
[2018-02-04] MEDS: D5 1/2 NS w/ 40 mEq/L KCl 1,000 ML IV SCH ×2 (00:46→14:35)
[2018-02-04] MEDS: Ondansetron 4 MG/2 ML SDV IVPUSH PRN (03:42)
[2018-02-04] MEDS: Meclizine 25 MG Tab PO PRN ×3 (03:42→19:05)
[2018-02-04] MEDS: Acetaminophen 325 MG Tab PO PRN ×4 (03:42→22:07)
[2018-02-04] MEDS: Pantoprazole 40 MG Vial IVPUSH SCH ×2 (05:47→19:04)
[2018-02-04] MEDS: LORazepam 0.5 MG Tab PO SCH ×2 (07:34→19:04)
[2018-02-04] MEDS: Citalopram 20 MG Tab PO SCH (07:35)
[2018-02-04] MEDS: Trolamine Salicylate/Aloe Vera 10% Crm 85 GM Tube TOP SCH ×4 (07:36→19:07)
--- NOTE | 2018-02-04 09:05 | PCM.PN ---
- General Info Date of Service: 02/04/18 Admission Dx/Problem (Free Text): 1. Chest pain 2. Nausea/emesis 3. Viral labyrinthitis Functional Status: Reports: Pain Controlled, Tolerating Diet, Ambulating, Urinating. Denies: New Symptoms, Incentive Spirometry Pain Score: 5 (Improved headache and neck pain with PT) - Review of Systems General: Reports: Appetite (Suboptimal however improving with no emesis). Denies: Fever, Weakness, Fatigue, Chills, Night Sweats HEENT: Reports: Headaches (Improved), Post Nasal Drip, Rhinitis, Visual Changes (Somewhat improved vertigo with head movement). Denies: Ear Pain, Eye Pain, Glasses, Sinus Congestion, Sore Throat Pulmonary: Reports: No Symptoms, Shortness of Breath. Denies: Pleuritic Chest Pain, Cough, Wheezing Cardiovascular: Reports: No Symptoms. Denies: Chest Pain, Palpitations, Dyspnea on Exertion, Orthopnea, Edema, Lightheadedness Gastrointestinal: Reports: Decreased Appetite (Improved), Nausea (Improved with current aggressive medical therapy). Denies: Abdominal Pain, Constipation ( With normal bowel movement yesterday by her history), Diarrhea, Difficulty Swallowing, Flatus, Hematochezia, Melena, Vomiting Genitourinary: Reports: No Symptoms. Denies: Dysuria, Frequency, Burning, Pain , Urgency, Incontinence, Hematuria, Retention, Flank Pain Musculoskeletal: Reports: Neck Pain (Improved neck, left shoulder, and scapular palpation pain and spasms with physical therapy and current medications), Shoulder Pain (As above). Denies: Back Pain Skin: Reports: No Symptoms. Denies: Pallor, Diaphoresis, Bruising, Rash Neurological: Reports: Dizziness, Headache. Denies: Confusion, Paresthesia, Seizure, Weakness Psychiatric: Reports: Depression (Improved), Anxiety (Improved). Denies: Confusion, Agitation, Hallucinations - Patient Data Vitals - Most Recent: Last Vital Signs Temp 37.1 C 02/04/18 05:59 Pulse 57 L 02/04/18 05:59 Resp 16 02/04/18 05:59 BP 149/61 H 02/04/18 05:59 Pulse Ox 100 02/04/18 05:59 Vital Signs - 24 hr 02/03/18 02/03/18 02/03/18 10:58 18:00 23:45 Temperature [ 36.9 C 36.8 C Oral] Pulse, 70 65 Peripheral [ Right Pulse Oximetry] Respiratory 16 Rate Blood Pressure 132/61 141/70 H [Left Upper Arm ] O2 Sat by Pulse 99 100 Oximetry O2 Sat by Pulse 95 Oximetry [Room Air] 02/04/18 05:59 Temperature [ 37.1 C Oral] Pulse, 57 L Peripheral [ Right Pulse Oximetry] Respiratory 16 Rate Blood Pressure 149/61 H [Left Upper Arm ] O2 Sat by Pulse 100 Oximetry O2 Sat by Pulse Oximetry [Room Air] Weight - Most Recent: 102.784 kg I&O - Last 24 Hours: Intake & Output 02/03/18 02/04/18 02/04/18 22:59 06:59 14:59 Intake Total 500 100 480 Output Total 350 2000 Balance 150 -1900 480 Imaging Impressions - Last 24 Hours: None Lab Results Last 24 Hours: Laboratory Results - last 24 hr 02/03/18 02/04/18 Range/Units 10:30 06:55 WBC 4.4 (4.0-10.2) K/uL RBC 3.57 L (3.77-5.09) M/uL Hgb 10.0 L (11.7-15.5) g/dL Hct 31.0 L (34.0-46.0) % MCV 86.8 (84.0-98.0) fL MCH 28.0 L (28.2-33.3) pg MCHC 32.3 (31.7-36.0) g/dL RDW 13.7 (11.2-14.1) % Plt Count 173 (150-350) K/uL Neut % (Auto) 58.7 (45.0-80.0) % Lymph % (Auto) 30.0 (10.0-50.0) % [place] % (Auto) 10.6 (2.0-14.0) % Eos % (Auto) 0.2 (0.0-5.0) % Baso % (Auto) 0.5 (0.0-2.0) % Neut # (Auto) 2.56 (1.40-7.00) K/uL Lymph # (Auto) 1.31 (0.50-3.50) K/uL [place] # (Auto) 0.46 (0.00-1.00) K/uL Eos # (Auto) 0.01 (0.00-0.50) K/uL Baso # (Auto) 0.02 (0.00-0.20) K/uL Specimen Type Urincc Urine Color Yellow Urine Appearance Clear Urine pH 6.5 (5.0-9.0) Ur Specific [place] 1.020 (1.005-1.030) Urine Protein Negative (NEGATIVE) mg/dL Urine Glucose (UA) Negative (NEGATIVE) mg/dL Urine Ketones Trace H (NEGATIVE) mg/dL Urine Occult Blood Moderate H (NEGATIVE) Urine Nitrite Positive H (NEGATIVE) Urine Bilirubin Negative (NEGATIVE) Urine Urobilinogen 0.2 (0.2-1.0) E.U./dL Ur Leukocyte Esterase Moderate H (NEGATIVE) Urine RBC 0-5 /HPF Urine WBC 20-30 H /HPF Ur Epithelial Cells Few /LPF Amorphous Sediment Moderate H (0/HPF) /HPF Urine Bacteria Moderate H (NONE TO FEW) /HPF Laboratory Results - last 24 hr 02/03/18 02/04/18 02/04/18 Range/Units 10:30 06:55 06:55 WBC 4.4 (4.0-10.2) K/uL RBC 3.57 L (3.77-5.09) M/uL Hgb 10.0 L (11.7-15.5) g/dL Hct 31.0 L (34.0-46.0) % MCV 86.8 (84.0-98.0) fL MCH 28.0 L (28.2-33.3) pg MCHC 32.3 (31.7-36.0) g/dL RDW 13.7 (11.2-14.1) % Plt Count 173 (150-350) K/uL Neut % (Auto) 58.7 (45.0-80.0) % Lymph % (Auto) 30.0 (10.0-50.0) % [place] % (Auto) 10.6 (2.0-14.0) % Eos % (Auto) 0.2 (0.0-5.0) % Baso % (Auto) 0.5 (0.0-2.0) % Neut # (Auto) 2.56 (1.40-7.00) K/uL Lymph # (Auto) 1.31 (0.50-3.50) K/uL [place] # (Auto) 0.46 (0.00-1.00) K/uL Eos # (Auto) 0.01 (0.00-0.50) K/uL Baso # (Auto) 0.02 (0.00-0.20) K/uL Sodium 143 (136-145) mmol/L Potassium 4.2 (3.5-5.1) mmol/L Chloride 111 H (98-107) mmol/L Carbon Dioxide 25.7 (21.0-32.0) mmol/L BUN 5 L (7-18) mg/dL Creatinine 0.76 (0.51-1.17) mg/dL Est Cr Clr Drug Dosing 60.21 mL/min Estimated GFR (MDRD) > 60 mL/min Glucose 92 (74-106) mg/dL Calcium 8.7 (8.5-10.1) mg/dL Specimen Type Urincc Urine Color Yellow Urine Appearance Clear Urine pH 6.5 (5.0-9.0) Ur Specific [place] 1.020 (1.005-1.030) Urine Protein Negative (NEGATIVE) mg/dL Urine Glucose (UA) Negative (NEGATIVE) mg/dL Urine Ketones Trace H (NEGATIVE) mg/dL Urine Occult Blood Moderate H (NEGATIVE) Urine Nitrite Positive H (NEGATIVE) Urine Bilirubin Negative (NEGATIVE) Urine Urobilinogen 0.2 (0.2-1.0) E.U./dL Ur Leukocyte Esterase Moderate H (NEGATIVE) Urine RBC 0-5 /HPF Urine WBC 20-30 H /HPF Ur Epithelial Cells Few /LPF Amorphous Sediment Moderate H (0/HPF) /HPF Urine Bacteria Moderate H (NONE TO FEW) /HPF Rogerio Results Last 24 Hours: Microbiology 02/02/18 06:15 Helicobacter pylori Antigen - Final Stool / Feces Microbiology 02/02/18 06:15 Stool / Feces Helicobacter pylori Antigen - Final 02/02/18 10:52 Stool / Feces Stool Occult Blood (ROGERIO) - Final NEGATIVE OCCULT BLOOD 02/02/18 06:15 Stool / Feces Stool Occult Blood (ROGERIO) - Final NEGATIVE OCCULT BLOOD H. pylori stool antigen was negative Med Orders - Current: Current Medications Acetaminophen (Tylenol) 650 mg PO Q4H PRN PRN Reason: Pain Last Admin: 02/03/18 21:33 Dose: 650 mg Artificial Tears (Liquitears 1.4% Ophth Soln) 0 ml EYEBOTH QID PRN PRN Reason: Dry Eyes Citalopram Hydrobromide (Celexa) 40 mg PO DAILY [facility] Last Admin: 02/04/18 07:35 Dose: 40 mg Potassium Chloride/Dextrose/Sod Cl (D5 1/2 Ns W/ 40 Meq/L Kcl) 1,000 mls @ 80 mls/hr IV ASDIRECTED [facility] Last Admin: 02/04/18 00:46 Dose: 100 mls/hr Ceftriaxone Sodium 1 gm/ (Sodium Chloride) 100 mls @ 200 mls/hr IV Q12H [facility] Last Admin: 02/03/18 23:55 Dose: 200 mls/hr Lorazepam (Ativan) 0.5 mg PO BID [facility] Last Admin: 02/04/18 07:34 Dose: 0.5 mg Meclizine HCl (Antivert) 25 mg PO Q6H PRN PRN Reason: Dizziness Last Admin: 02/04/18 03:42 Dose: 25 mg Mirtazapine (Remeron) 15 mg PO BEDTIME [facility] Last Admin: 02/03/18 20:07 Dose: 15 mg Ondansetron HCl (Zofran) 4 mg IVPUSH Q6H PRN PRN Reason: Nausea/Vomiting Last Admin: 02/04/18 03:42 Dose: 4 mg Pantoprazole Sodium (Protonix Iv) 40 mg IVPUSH Q12H [facility] Last Admin: 02/04/18 05:47 Dose: 40 mg Polyethylene Glycol (Miralax) 0 gm PO ONETIME ONE Stop: 02/04/18 12:01 Sodium Chloride (Saline Flush) 10 ml FLUSH ASDIRECTED PRN PRN Reason: Keep Vein Open Last Admin: 02/03/18 17:40 Dose: 10 ml Sodium Chloride (Saline Flush) 10 ml FLUSH Q12HR PRN PRN Reason: Keep Vein Open Last Admin: 02/02/18 17:07 Dose: 10 ml Temazepam (Restoril) 15 mg PO BEDTIME PRN PRN Reason: Insomnia Last Admin: 02/03/18 21:33 Dose: 15 mg Trolamine Salicylate (Aspercreme 10%) 1 gm TOP QID [facility] Last Admin: 02/04/18 07:36 Dose: 1 applic Discontinued Medications Aspirin (Aspirin) 324 mg CHEW ONETIME ONE Stop: 02/01/18 13:45 Last Admin: 02/01/18 13:53 Dose: 324 mg Aspirin (Aspirin) Confirm Administered Dose 324 mg .ROUTE .STK-MED ONE Stop: 02/01/18 13:53 Last Admin: 02/01/18 13:58 Dose: Not Given Bisacodyl (Dulcolax) 10 mg PO ONETIME ONE Stop: 02/03/18 18:01 Last Admin: 02/03/18 17:37 Dose: 10 mg Famotidine (Pepcid) 40 mg IVPUSH ONETIME ONE Stop: 02/01/18 13:45 Last Admin: 02/01/18 13:52 Dose: 40 mg Ferrous Sulfate (Ferrous Sulfate) 325 mg PO TIDMEALS [facility] Lactated Ringer's (Ringers, Lactated) 1,000 mls @ 100 mls/hr IV ASDIRECTED [facility] Last Admin: 02/02/18 00:38 Dose: 100 mls/hr Iopamidol (Isovue-300 (61%)) 100 ml IVPUSH ONETIME ONE Stop: 02/03/18 10:01 Last Admin: 02/03/18 12:27 Dose: Not Given Iopamidol (Isovue-370 (76%)) 100 ml IVPUSH ONETIME ONE Stop: 02/03/18 10:46 Last Admin: 02/03/18 16:06 Dose: 100 ml Meclizine HCl (Antivert) 25 mg PO ONETIME ONE Stop: 02/01/18 14:23 Last Admin: 02/01/18 14:25 Dose: 25 mg Methyl Salicylate (Icy Hot Cream) 1 gm TOP BID [facility] Last Admin: 02/03/18 08:45 Dose: 1 applic Methylprednisolone Sodium Succinate (Solu-Medrol) 125 mg IVPUSH ONETIME ONE Stop: 02/02/18 11:01 Last Admin: 02/02/18 11:57 Dose: 125 mg Metoclopramide HCl (Reglan) 10 mg IVPUSH ONETIME ONE Stop: 02/01/18 14:23 Last Admin: 02/01/18 14:26 Dose: 10 mg Ondansetron HCl (Zofran) 4 mg IVPUSH ONETIME ONE Stop: 02/01/18 13:47 Last Admin: 02/01/18 13:51 Dose: 4 mg Potassium Chloride (Klor-Con M20) 20 meq PO ONETIME ONE Stop: 02/02/18 12:01 Last Admin: 02/02/18 11:58 Dose: 20 meq Ticagrelor (Brilinta) 180 mg PO ONETIME ONE Stop: 02/01/18 13:45 Last Admin: 02/01/18 13:53 Dose: 180 mg - Exam Quality Assessment: DVT Prophylaxis. No: Supplemental Oxygen, Central Line/PICC , Urine Catheter, Skin Breakdown, Restraints General: Alert, Oriented, Cooperative, No Acute Distress HEENT: Pupils Equal, Pupils Reactive, EOMI, Mucous Membr. Moist/[place] Neck: Supple, Trachea Midline, No JVD, No Thyromegaly, +2 Carotid Pulse wo Bruit. No: Lymphadenopathy Lungs: Clear to Auscultation, Normal Respiratory Effort. No: Rhonchi, Rub, Wheezing Cardiovascular: Regular Rate, Regular Rhythm, No Murmurs. No: Gallops, Rubs GI/Abdominal Exam: Normal Bowel Sounds, Soft, Non-Tender, No Organomegaly, No Distention, No Abnormal Bruit, No Mass. No: Guarding (Female) Exam: Deferred Back Exam: Normal Inspection, Full Range of Motion. No: CVA Tenderness (L), CVA Tenderness (R), Muscle Spasm Extremities: No Pedal Edema, Normal Capillary Refill, Other (Improved mild left posterior neck, left scapular, and deltoid muscle spasms with mild localized tenderness however no swelling, ecchymosis, etc.). No: Hilary's Sign Peripheral Pulses: 2+: Radial (L), Radial (R) Skin: Warm, Dry, Intact. No: Ecchymosis Neurological: No New Focal Deficit, Other (No clinical orthostasis) Psy/Mental Status: Alert, Anxious (Moderate but improved), Depressed (Mild to moderate with adequate eye contact). No: Agitated, Suicidal Ideation, Homicidal Ideation, Hallucinations, Withdrawal Symptoms - Problem List & Annotations (1) Chest pain SNOMED Code(s): 90493005 Code(s): R07.9 - CHEST PAIN, UNSPECIFIED Status: Acute Priority: High Current Visit: Yes Onset Date: 01/29/18 Qualifiers: Chest pain type: unspecified Qualified Code(s): R07.9 - Chest pain, unspecified Annotation/Comment:: Negative workup for acute SC with possible anterior wall cardiac ischemia, although no chest pain or anginal type symptoms. Chest pain protocol was initiated in the emergency room. Negative serial cardiac enzymes. Symptoms seem to be more related to her GI complaints and anxiety. Cardiology consultation depending on her clinical course. Cardiolite stress test on an outpatient basis secondary to some cardiac risk factors. Note excellent HDL and lipid panel during this hospitalization with glycosylated hemoglobin of 5.9% (2) Labyrinthitis SNOMED Code(s): 97134878 Code(s): H83.09 - LABYRINTHITIS, UNSPECIFIED EAR Status: Acute Priority: High Current Visit: Yes Onset Date: ~01/29/18 Qualifiers: Laterality: unspecified laterality Qualified Code(s): H83.09 - Labyrinthitis, unspecified ear Annotation/Comment:: IV Solu-Medrol given on 02/02 with no repeat dosage for now secondary to progressive anemia. Continue meclizine as below, however significant anxiety component to her symptoms. Additional low-dose oral Ativan therapy was ordered, which should also benefit her nonspecific neck and scapular spasms. The patient acknowledges that her current medical therapy is not working well for her anxiety or depression with Remeron initiated yesterday. Close follow-up of her emotional status with her regular provider. Patient should not be discharged on Ativan, however. Neurological checks with vitals have been stable and were discontinued on 02/03 as below. Note normal CT scan of the head on 02/02/18 with improved headaches this morning. (3) Nausea and vomiting SNOMED Code(s): 76779667 Code(s): R11.2 - NAUSEA WITH VOMITING, UNSPECIFIED Status: Acute Priority : High Current Visit: Yes Onset Date: ~01/29/18 Qualifiers: Vomiting type: unspecified Vomiting Intractability: non-intractable Qualified Code(s): R11.2 - Nausea with vomiting, unspecified Annotation/Comment:: Probable viral labyrinthitis as above with questionable additional viral gastroenteritis. No leukocytosis. Note additional regularly scheduled meclizine required per patient request, although this is still on a when necessary basis per my orders. Significant constipation by x-rays, however normal bowel movement yesterday by her history with negative Hemoccults 2. The patient and her do agree to recommended EGD and colonoscopy, which will be performed tomorrow, with bowel prep ordered. Secondary to refractory symptoms and the necessary above scope procedures extended hospitalization is required. Note progressive anemia during this hospitalization, although relatively stable today, with known iron deficiency diagnosed earlier in this hospitalization.. Secondary to refractory symptoms CT scan of the abdomen and pelvis with IV and oral contrast was conducted on 02/03 with results as above. Additional CTA of the chest on 02/03/18 was also conducted secondary to nonspecific dyspnea with normal d-dimer and negative evaluation for PE. Abdominal and neurological checks with vitals during this hospitalization were normal and were discontinued on 02/03. (4) Lactic acid increased SNOMED Code(s): 06682913 Code(s): E87.2 - ACIDOSIS Status: Acute Priority: High Current Visit: Yes Onset Date: 02/01/18 Annotation/Comment:: Lactic acid normalized this morning with variable lactic acid levels during this hospitalization. No fever, clinical evidence of sepsis, etc. (5) Anemia SNOMED Code(s): 302914832 Code(s): D64.9 - ANEMIA, UNSPECIFIED Status: Acute Priority: Medium Current Visit: Yes Onset Date: 02/01/18 Qualifiers: Anemia type: iron deficiency Iron deficiency anemia type: unspecified iron deficiency Qualified Code(s): D50.9 - Iron deficiency anemia, unspecified Annotation/Comment:: Progressive anemia as above with newly diagnosed iron deficiency anemia. Initiate iron supplementation after completion of planned EGD and colonoscopy with recommended repeat iron studies one month after discharge. Vitamin B-12 and folic acid levels were normal during this hospitalization. (6) Mixed anxiety depressive disorder SNOMED Code(s): 629059052 Code(s): F41.8 - OTHER SPECIFIED ANXIETY DISORDERS Status: Chronic Priority: Medium Current Visit: Yes Annotation/Comment:: Improved today with medication adjustments as above. Continued moderate control, however. Continue to observe closely during this hospitalization and by her regular provider. (7) Osteoarthritis SNOMED Code(s): 394942982 Code(s): M19.90 - UNSPECIFIED OSTEOARTHRITIS, UNSPECIFIED SITE Status: Chronic Priority: Medium Current Visit: Yes Qualifiers: Osteoarthritis location: multiple joints Osteoarthritis type: primary Qualified Code(s): M15.0 - Primary generalized (osteo)arthritis Annotation/Comment:: Spoke to Hero, physical therapist, today with improved symptoms with his therapy, including this morning. Nonspecific left scapular and neck discomfort and spasmsg with no history of fall, injury, etc. Patient has used Flexeril in the past, however this must be avoided at this time secondary current meclizine therapy.. Note low-dose Ativan as above. Her arthritis is otherwise stable by patient history. Continue Topical treatments and Physical therapy. (8) Restless leg syndrome SNOMED Code(s): 46097056 Code(s): G25.81 - RESTLESS LEGS SYNDROME Status: Chronic Priority: Medium Current Visit: Yes Annotation/Comment:: Moderate Control by her 's history. Consider outpatient sleep study once current symptoms have resolved. She would also benefit from update of her yearly exam and preventive health care. (9) Hypokalemia SNOMED Code(s): 63535545 Code(s): E87.6 - HYPOKALEMIA Status: Acute Priority: High Current Visit : Yes Onset Date: 02/02/18 Annotation/Comment:: Resolved with aggressive IV fluids and oral supplementation yesterday and continue to observe closely. (10) COPD (chronic obstructive pulmonary disease) SNOMED Code(s): 32509719 Code(s): J44.9 - CHRONIC OBSTRUCTIVE PULMONARY DISEASE, UNSPECIFIED Status : Chronic Priority: Medium Current Visit: Yes Qualifiers: COPD type: emphysema Emphysema type: panlobular Qualified Code(s): J43.1 - Panlobular emphysema Annotation/Comment:: COPD by chest x-ray. Consider PFTs on an outpatient basis as above. - Problem List Review Problem List Initiated/Reviewed/Updated: Yes - My Orders Last 24 Hours: My Active Orders 02/03/18 08:55 Abdomen Pelvis w Cont [CT] Stat 02/03/18 09:28 Consult to Physician [CONS] Routine 02/03/18 09:45 PT Evaluation and Treatment [CONS] Routine Trolamine Salicylate/Aloe Vera [Aspercreme 10%] 1 gm TOP QID 02/03/18 10:00 Communication Order [RC] ROUTINE LORazepam [Ativan] 0.5 mg PO BID 02/03/18 10:30 CULTURE URINE [RM] Routine URINALYSIS W/MICROSCOPIC [UA W/MICROSCOPIC] [URIN] Routine 02/03/18 10:44 Chest PE [Ang Chest] [CT] Stat 02/03/18 11:00 cefTRIAXone [Rocephin] 1 gm Sodium Chloride 0.9% [Normal Saline] 100 ml IV Q12H 02/03/18 20:00 Mirtazapine [Remeron] 15 mg PO BEDTIME 02/04/18 06:55 BASIC METABOLIC PANEL,BMP [CHEM] Routine 02/04/18 12:00 Polyethylene Glycol 3350 [MiraLAX] See Dose Instructions PO ONETIME ONE 02/04/18 Breakfast Clear Liquid Diet [DIET] - Assessment Assessment:: As above - Plan Plan:: As above. Extensive precautions were given to the patient and her , who are in agreement with the treatment plan. Anticipate an additional 2 days of inpatient care with extended hospitalization required as above.
[2018-02-04 09:28] LABS: CHLORIDE,CL 111 mmol/L (98-107); SODIUM,NA 143 mmol/L (136-145)
[2018-02-04] MEDS: cefTRIAXone 1 GM in Sodium Chloride 0.9% 100 ML IV SCH ×2 (10:31→22:07)
[2018-02-04] MEDS ORDERED: Polyethylene Glycol 3350 Powder 238 GM Bot PO ONE (12:00)
[2018-02-04] MEDS: Mirtazapine 15 MG Tab PO SCH (19:05)
[2018-02-04] MEDS: Sodium Chloride 0.9% 10 ML Syringe FLUSH PRN (19:05)
[2018-02-04] MEDS: Temazepam 15 MG Cap PO PRN (22:08)
--- NOTE | 2018-02-04 22:11 | PCM.SN ---
- Free Text/Narrative Note: Telemetry discontinued today due to patient performing colonoscopy prep. She has required frequent trips to the bathroom and requested that the monitoring be stopped for now. Patient has been stable during stay and was on telemetry since admission. Consider restarting telemetry after colonoscopy if indicated.
[2018-02-05] MEDS: Meclizine 25 MG Tab PO PRN ×3 (01:01→15:30)
[2018-02-05] MEDS: D5 1/2 NS w/ 40 mEq/L KCl 1,000 ML IV SCH ×2 (03:40→14:33)
[2018-02-05] MEDS: Sodium Chloride 0.9% 10 ML Syringe FLUSH PRN (05:52)
[2018-02-05] MEDS: Pantoprazole 40 MG Vial IVPUSH SCH (05:52)
[2018-02-05] MEDS: Citalopram 20 MG Tab PO SCH (08:01)
[2018-02-05] MEDS: LORazepam 0.5 MG Tab PO SCH (08:01)
[2018-02-05] MEDS: Acetaminophen 325 MG Tab PO PRN ×2 (08:03→15:30)
[2018-02-05] MEDS: Ondansetron 4 MG/2 ML SDV IVPUSH PRN (08:05)
[2018-02-05] MEDS: Trolamine Salicylate/Aloe Vera 10% Crm 85 GM Tube TOP SCH ×3 (08:11→15:32)
[2018-02-05] MEDS: cefTRIAXone 1 GM in Sodium Chloride 0.9% 100 ML IV SCH (12:02)
[2018-02-05] MEDS ORDERED: fentaNYL 100 MCG/2 ML SDV ONE ×2 (13:28→13:46)
[2018-02-05] MEDS ORDERED: Propofol 200 MG/20 ML SDV ONE ×2 (13:29→13:46)
[2018-02-05] MEDS ORDERED: Midazolam 1 MG/ML 2 ML SDV ONE ×2 (13:29→13:46)
[2018-02-05] MEDS ORDERED: Lidocaine 2% 5 ML SDV ONE (13:46)
--- NOTE | 2018-02-05 14:14 | PCM.OPNOTE ---
- General Post-Op/Procedure Note Date of Surgery/Procedure: 02/05/18 Operative Procedure(s): EGD / Colonoscopy Findings: Both normal Pre Op Diagnosis: Fe Def Anemia Post-Op Diagnosis: Same Anesthesia Technique: MAC Primary Surgeon: Rell Melchor Anesthesia Provider: Johanna Fisher Complications: None Condition: Good Free Text/Narrative:: Intake & Output 02/04/18 02/05/18 02/05/18 22:59 06:59 14:59 Intake Total 620 Balance 620
[2018-02-05] MEDS ORDERED: Potassium Chloride 20 MEQ Tab.ER PO ONE (14:30)
--- NOTE | 2018-02-05 14:30 | PCM.DCSUM1 ---
Discharge Summary - Hospital Course HPI Initial Comments: See the Emergency room note/admission H&P Brief History: See emergency room note/admission H&P - Discharge Data Discharge Date: 02/05/18 Discharge Disposition: Home, Self-Care 01 Condition: Good - Discharge Diagnosis/Problem(s) (1) Chest pain SNOMED Code(s): 30519234 ICD Code: R07.9 - CHEST PAIN, UNSPECIFIED Status: Acute Priority: High Current Visit: Yes Onset Date: 01/29/18 Problem Details: Negative workup for acute DE with possible anterior wall cardiac ischemia, although no chest pain or anginal type symptoms. Chest pain protocol was initiated in the emergency room. Negative serial cardiac enzymes. Symptoms seem to be more related to her GI complaints and anxiety. Cardiology consultation depending on her clinical course. Cardiolite stress test on an outpatient basis secondary to some cardiac risk factors. Note excellent HDL and lipid panel during this hospitalization with glycosylated hemoglobin of 5.9% Qualifiers: Chest pain type: unspecified Qualified Code(s): R07.9 - Chest pain, unspecified (2) Labyrinthitis SNOMED Code(s): 92194070 ICD Code: H83.09 - LABYRINTHITIS, UNSPECIFIED EAR Status: Acute Priority : High Current Visit: Yes Onset Date: ~01/29/18 Problem Details: 1 additional dose of IV Solu-Medrol prior to discharge secondary to persistent labyrinthitis with negative EGD and colonoscopy today as below. Note that one dose of IV Solu-Medrol was also given on 02/02 with only minimal improvement of the patient's symptoms. Continue meclizine on an outpatient basis with caution with sedation precautions given. Strongly consider MRI of the brain in 2 weeks, if significant symptoms persist, to rule out possible acoustic neuroma. Note, however significant anxiety component to her symptoms with medication adjustments during this hospitalization, including initiation of Remeron. Consider further medication adjustments, counseling, etc. by her regular provider depending on her clinical course. Additional low-dose oral Ativan therapy during this hospitalization was ordered, which should also benefit her nonspecific neck and scapular spasms, which have improved somewhat with physical therapy. No additional Flexeril at this time secondary to patient's meclizine. Physical therapy will be continued on an outpatient basis. The patient acknowledges that her current medical therapy is not working well for her anxiety or depression. Patient will not be discharged on Ativan, however, secondary to sedation with meclizine and risk of dependency with Ativan. Neurological checks with vitals have been stable and were discontinued on 02/[address] as [address] Note normal CT scan of the head on 02/02/18, although continued headaches this morning. Continue physical therapy as above. Qualifiers: Laterality: unspecified laterality Qualified Code(s): H83.09 - Labyrinthitis, unspecified ear (3) Nausea and vomiting SNOMED Code(s): 18343951 ICD Code: R11.2 - NAUSEA WITH VOMITING, UNSPECIFIED Status: Acute Priority: High Current Visit: Yes Onset Date: ~01/29/18 Problem Details: Nausea has since resolved with no recent emesis and patient tolerating diet well. Probable viral labyrinthitis initially as above with questionable additional viral gastroenteritis. No leukocytosis. Note additional regularly scheduled meclizine required per patient request, although this was still ordered on a when necessary basis. Significant constipation by x-rays, however resolved with bowel prep for her colonoscopy. Note negative stool for H. pylori and negative Hemoccults 2. Consultation with Dr. Melchor this afternoon with negative EGD and colonoscopy results, which were extensively discussed with the patient and her prior to discharge. Secondary to refractory symptoms and the necessary above scope procedures extended hospitalization is required. Note progressive anemia during this hospitalization, although relatively stable at discharge, with known iron deficiency diagnosed earlier in this hospitalization.. Secondary to refractory symptoms CT scan of the abdomen and pelvis with IV and oral contrast was conducted on 02/03 with results as below. Etc. for further evaluation of her gallbladder including abdominal ultrasound, HIDA scan, repeat surgical referral, etc., if abdominal symptoms persist after resolution of her labyrinthitis. Additional CTA of the chest on 02/03/18 was also conducted secondary to nonspecific dyspnea with normal d-dimer and negative evaluation for PE. Abdominal and neurological checks with vitals during this hospitalization were normal and were discontinued on 02/03. Qualifiers: Vomiting type: unspecified Vomiting Intractability: non-intractable Qualified Code(s): R11.2 - Nausea with vomiting, unspecified (4) Lactic acid increased SNOMED Code(s): 17245173 ICD Code: E87.2 - ACIDOSIS Status: Acute Priority: High Current Visit: Yes Onset Date: 02/01/18 Problem Details: Lactic acid normalized prior to discharge with variable lactic acid levels during this hospitalization. No fever , clinical evidence of sepsis, etc. (5) Anemia SNOMED Code(s): 507700598 ICD Code: D64.9 - ANEMIA, UNSPECIFIED Status: Acute Priority: Medium Current Visit: Yes Onset Date: 02/01/18 Problem Details: Progressive anemia as above with newly diagnosed iron deficiency anemia. Initiate iron supplementation discharge with completed EGD and colonoscopy day as above. Recommend repeat iron studies one month after discharge. Vitamin B-12 and folic acid levels were normal during this hospitalization. Qualifiers: Anemia type: iron deficiency Iron deficiency anemia type: unspecified iron deficiency Qualified Code(s): D50.9 - Iron deficiency anemia, unspecified (6) Mixed anxiety depressive disorder SNOMED Code(s): 607463632 ICD Code: F41.8 - OTHER SPECIFIED ANXIETY DISORDERS Status: Chronic Priority: Medium Current Visit: Yes Problem Details: Improved prior to discharge with medication adjustments as above. Continued moderate control, however. Continue to observe closely during this hospitalization and by her regular provider. (7) Osteoarthritis SNOMED Code(s): 038733098 ICD Code: M19.90 - UNSPECIFIED OSTEOARTHRITIS, UNSPECIFIED SITE Status: Chronic Priority: Medium Current Visit: Yes Problem Details: Spoke to [facility], once again today with improved symptoms with his therapy, including this morning. Nonspecific left scapular and neck discomfort and spasms with no history of fall, injury, etc. Patient has used Flexeril in the past, however this must be avoided at this time secondary current meclizine therapy as above. Note low-dose Ativan during this hospitalization as above. Her arthritis is otherwise stable by patient history. Continue Topical treatments and Physical therapy on an outpatient basis. Qualifiers: Osteoarthritis location: multiple joints Osteoarthritis type: primary Qualified Code(s): M15.0 - Primary generalized (osteo)arthritis (8) Restless leg syndrome SNOMED Code(s): 06302949 ICD Code: G25.81 - RESTLESS LEGS SYNDROME Status: Chronic Priority: Medium Current Visit: Yes Problem Details: Moderate Control by her ' s history. Consider outpatient sleep study once current symptoms have resolved. She would also benefit from update of her yearly exam and preventive health care. (9) Hypokalemia SNOMED Code(s): 79023505 ICD Code: E87.6 - HYPOKALEMIA Status: Acute Priority: High Current Visit: Yes Onset Date: 02/02/18 Problem Details: Resolved with aggressive IV fluids and oral supplementation during this hospitalization. Potassium supplementation through IV fluids and also one dose of oral potassium chloride after EGD and colonoscopy today and prior to discharge secondary to bowel prep. Blood work to be repeated at follow up as per discharge instructions. (10) COPD (chronic obstructive pulmonary disease) SNOMED Code(s): 92906890 ICD Code: J44.9 - CHRONIC OBSTRUCTIVE PULMONARY DISEASE, UNSPECIFIED Status : Chronic Priority: Medium Current Visit: Yes Problem Details: COPD by chest x-ray. Consider PFTs on an outpatient basis as above. No recent fever or bronchitic type symptoms. Qualifiers: COPD type: emphysema Emphysema type: panlobular Qualified Code(s): J43.1 - Panlobular emphysema (11) UTI (urinary tract infection) SNOMED Code(s): 32730905 ICD Code: N39.0 - URINARY TRACT INFECTION, SITE NOT SPECIFIED Status: Acute Priority: High Current Visit: Yes Problem Details: She did receive 5 doses of IV Rocephin during this hospitalization. Culture was negative and did show some contamination. Secondary to nonspecific persistent symptoms at discharge patient will be discharged with one week of Macrobid therapy. Close follow-up by regular provider at follow-up as per discharge instructions. Qualifiers: Urinary tract infection type: acute cystitis Hematuria presence: without hematuria Qualified Code(s): N30.00 - Acute cystitis without hematuria - Patient Summary/Data Operative Procedure(s) Performed: EGD / Colonoscopy Complications: None Consults: Consultations 02/03/18 09:28 Consult to Physician [CONS] Routine, Dr. Rell Melchor, general surgery for EGD and colonoscopy 02/03/18 09:45 PT Evaluation and Treatment [CONS] Routine Labs Pending at D/C: None Recommended Follow-up Testing/Procedures: As per discharge instructions Planned Operative Procedure(s) after DC: As per discharge instructions - Patient Instructions Diet: Heart Healthy Diet ([place] diet including encouragement of oral fluids such as sports drinks, etc. for 24-48 hours as directed. Advance to regular heart healthy, high-fiber diet as tolerated thereafter.) Activity: No Strenuous Activities (50% maximum exercise restriction until heart status has been determined with strict fall and injury precautions as discussed) Driving: Do Not Drive Showering/Bathing: May Shower Notify Provider of: Fever, Increased Pain, Nausea and/or Vomiting Other/Special Instructions: 1. Follow-up with your regular provider, Kev Montano PA-C, at the [facility] in [place], in one week for reevaluation and recommended repeat CBC, comprehensive metabolic panel, UA, urine for culture and sensitivity and abdominal x-rays. 2. Discuss at that time possible Cardiolite stress test in this facility once your dizziness and labyrinthitis have resolved. 3. Recommend MRI of the brain to rule out acoustic neuroma, if your labyrinthitis persists for more than 2 additional weeks. 4. Recommend abdominal ultrasound, HIDA scan, and/or surgical consultation, if abdominal symptoms persist after your labyrinthitis has resolved. 5. Discuss recommended sleep study with your regular provider secondary to possible restless leg syndrome and COPD. 6. Continue your physical therapy 2 times per week basis as an outpatient until otherwise directed by your regular provider. 7. BenGay or equivalent, heating pad, and/or ice packs as directed. 8. Tylenol 650 mg by mouth every 4 hours and/or OTC ibuprofen 2-3 tabs by mouth every 6 hours with food as directed./needed. 9. Recommend TIBC panel, ferritin level, and Transferin level in 4 weeks. 10. Black stool precautions with iron sulfate therapy as discussed - Discharge Plan Prescriptions/Med Rec: Ferrous Sulfate 325 mg PO BID #60 tablet Meclizine [Antivert] 25 mg PO Q6H PRN #30 tablet PRN Reason: Dizziness Mirtazapine [Remeron] 15 mg PO BEDTIME #30 tablet Nitrofurantoin Monohyd/M-Cryst [Macrobid 100 mg Capsule] 100 mg PO BIDMEALS #14 capsule Home Medications: Home Meds Citalopram Hydrobromide [Celexa] 40 mg PO DAILY 02/01/18 [History] Flaxseed Oil 1 cap PO DAILY 02/01/18 [History] Lutein/Minerals/Vit A,C & E [Ocuvite] 1 tab PO DAILY 02/01/18 [History] Multivit with Calcium,Iron,Min [Multivitamins [id number]] 1 tab PO DAILY [History] Ferrous Sulfate 325 mg PO BID #60 tablet 02/05/18 [Rx] Meclizine [Antivert] 25 mg PO Q6H PRN #30 tablet 02/05/18 [Rx] Mirtazapine [Remeron] 15 mg PO BEDTIME #30 tablet 02/05/18 [Rx] Nitrofurantoin Monohyd/M-Cryst [Macrobid 100 mg Capsule] 100 mg PO BIDMEALS #14 capsule 02/05/18 [Rx] Polyvinyl Alcohol [LiquiTears 1.4% Ophth Soln] 0 ml EYEBOTH QID PRN bottle 12/21 [Rx] Trolamine Salicylate/Aloe Vera [Aspercreme 10%] 1 gm TOP QID tube 02/05/18 [Rx] Patient Handouts: Meclizine tablets or capsules, Aspirin, ASA chewable tablets , Colonoscopy, Adult, [id number], Esophagogastroduodenoscopy, Metoclopramide injection, Ondansetron injection, Ticagrelor oral tablet, Colonoscopy, Adult, Care After, [id number], Ceftriaxone injection, Pantoprazole injection, Labyrinthitis, Nonspecific Chest Pain, Famotidine injection, Nausea and Vomiting , Adult, Esophagogastroduodenoscopy, Care After Forms: ED Department Discharge Referrals: Kev Montano PA [Primary Care Provider] - - Discharge Summary/Plan Comment DC Time >30 min.: Yes (Coordination of care ) Discharge Summary/Plan Comment: As above. Extensive precautions were given to the patient and her , who are agreement with the treatment plan. See Patient Instructions for further treatment and plan. - General Info Date of Service: 02/05/18 Admission Dx/Problem (Free Text: 1. Chest pain 2. Nausea/emesis 3. Viral labyrinthitis Functional Status: Reports: Pain Controlled, Tolerating Diet, Ambulating, Urinating, New Symptoms. Denies: Incentive Spirometry Numeric/FACES Score: 8 (Persistent intermittent headache) - Review of Systems General: Reports: No Symptoms. Denies: Fever, Weakness, Fatigue, Malaise, Chills, Night Sweats, Appetite (Tolerating diet well) HEENT: Reports: Headaches. Denies: Dysphasia, Ear Pain, Eye Pain, Sinus Congestion, Sore Throat, Rhinitis, Visual Changes Pulmonary: Reports: No Symptoms. Denies: Shortness of Breath, Pleuritic Chest Pain, Sputum, Wheezing Cardiovascular: Reports: No Symptoms. Denies: Chest Pain, Palpitations, Dyspnea on Exertion, Orthopnea, PND, Edema Gastrointestinal: Reports: Diarrhea (Diarrhea some bowel prep). Denies: Abdominal Pain, Constipation, Decreased Appetite, Difficulty Swallowing, Hematochezia, Melena, Nausea, Vomiting Genitourinary: Reports: Dysuria (Borderline). Denies: Frequency, Burning, Pain , Urgency, Incontinence, Hematuria, Retention, Flank Pain Musculoskeletal: Reports: Neck Pain, Shoulder Pain. Denies: Arm Pain, Hand Pain , Back Pain, Leg Pain, Foot Pain, Joint Pain, Joint Swelling Skin: Reports: No Symptoms. Denies: Diaphoresis, Bruising, Pruritis Neurological: Reports: Headache. Denies: Confusion, Dizziness, Numbness, Paresthesia, Seizure, Syncope, Tingling, Weakness Psychiatric: Reports: Depression, Anxiety. Denies: Confusion, Agitation, Hallucinations, Suicidal Ideation, Homicidal Ideation - Patient Data Vitals - Most Recent: Last Vital Signs Temp 36.4 C 02/05/18 11:19 Pulse 62 02/05/18 11:19 Resp 17 02/05/18 11:19 BP 169/73 H 02/05/18 11:19 Pulse Ox 100 02/05/18 11:19 Vital Signs - 24 hr 02/04/18 02/05/18 02/05/18 18:00 01:02 06:30 Temperature [ 36.6 C Oral] Temperature [ 36.5 C 36.9 C Temporal] Pulse, 63 63 62 Peripheral [ Right Pulse Oximetry] Respiratory 16 16 18 Rate Blood Pressure 130/73 143/67 H 165/78 H [Left Upper Arm ] O2 Sat by Pulse 99 99 100 Oximetry 02/05/18 11:19 Temperature [ 36.4 C Oral] Temperature [ Temporal] Pulse, 62 Peripheral [ Right Pulse Oximetry] Respiratory 17 Rate Blood Pressure 169/73 H [Left Upper Arm ] O2 Sat by Pulse 100 Oximetry Weight - Most Recent: 101.831 kg I&O - Last 24 hours: Intake & Output 02/04/18 02/05/18 02/05/18 22:59 06:59 14:59 Intake Total 620 Balance 620 Imaging Impressions - Last 24 hrs: ekg monitor did show normal sinus rhythm with average heart rate in the 70s with no ectopy or arrhythmia. Note that teletypesetter monitor was discharged on day prior to discharge. Telephone consultation at 13:15 hours with the radiology department at [facility] on 02/03/18 with preliminary verbal reports of CT scans. CTA of the chest showed no evidence of PE, CHF, or other abnormality. CT of the abdomen and pelvis both with oral and IV contrast showed nonspecific findings with some borderline prominence of the gallbladder, etc., however no sludge, cholelithiasis, or evidence of significant gallbladder disease. No evidence of malignancy, obstruction, etc. including in the distal esophagus, etc. Note that patient did have problems with oral contrast with otherwise adequate study. Note subsequent official written reports did agree with above findings. Acute abdominal x-rays on 02/01/18 shows evidence of moderate diffuse stool with nonspecific bowel gaseous pattern, however no evidence of free air, ileus, obstruction, intra-abdominal calcifications, etc. No cardiomegaly, pulmonary infiltrates, CHF, COPD, pneumothorax, etc. Lab Results - Last 24 hrs: Laboratory Tests 02/01/18 02/01/18 02/01/18 Range/Units 13:42 13:42 13:42 WBC 7.3 (4.0-10.2) K/uL RBC 4.06 (3.77-5.09) M/uL Hgb 11.4 L (11.7-15.5) g/dL Hct 33.9 L (34.0-46.0) % MCV 83.5 L (84.0-98.0) fL MCH 28.1 L (28.2-33.3) pg MCHC 33.6 (31.7-36.0) g/dL RDW 13.3 (11.2-14.1) % Plt Count 234 (150-350) K/uL Neut % (Auto) 55.2 (45.0-80.0) % Lymph % (Auto) 35.1 (10.0-50.0) % [place] % (Auto) 8.3 (2.0-14.0) % Eos % (Auto) 1.0 (0.0-5.0) % Baso % (Auto) 0.4 (0.0-2.0) % Neut # (Auto) 4.05 (1.40-7.00) K/uL Lymph # (Auto) 2.57 (0.50-3.50) K/uL [place] # (Auto) 0.61 (0.00-1.00) K/uL Eos # (Auto) 0.07 (0.00-0.50) K/uL Baso # (Auto) 0.03 (0.00-0.20) K/uL PT 10.7 (9.8-11.7) SEC INR 1.0 APTT 22.9 (22.1-29.8) SEC D-Dimer, Quantitative < 100 (0-400) ng/mL Sodium (136-145) mmol/L Potassium (3.5-5.1) mmol/L Chloride (98-107) mmol/L Carbon Dioxide (21.0-32.0) mmol/L BUN (7-18) mg/dL Creatinine (0.51-1.17) mg/dL Est Cr Clr Drug Dosing mL/min Estimated GFR (MDRD) mL/min Glucose (74-106) mg/dL Hemoglobin A1c (4.3-5.7) % Lactic Acid (0.4-2.0) mmol/L Uric Acid (2.6-7.2) mg/dL Calcium (8.5-10.1) mg/dL Magnesium (1.8-2.4) mg/dL Iron (50-175) ug/dL TIBC (250-450) ug/dL % Saturation Ferritin (8-388) ng/mL Total Bilirubin (0.2-1.0) mg/dL AST (15-37) U/L ALT (12-78) U/L Alkaline Phosphatase (46-116) IU/L Creatine Kinase (26-308) U/L Creatine Kinase Index (0.0-2.5) % CK-MB (CK-2) (0.00-3.60) ng/mL Troponin I (0.000-0.056) ng/mL NT-Pro-B Natriuret Pep (0-125) pg/mL Total Protein (6.4-8.2) g/dL Albumin (3.4-5.0) g/dL Triglycerides (30-150) mg/dL Cholesterol (100-200) mg/dL LDL Cholesterol, Calc (0-100) mg/dL HDL Cholesterol (40-60) mg/dL Amylase (25-115) U/L Lipase (73-393) U/L Vitamin B12 (193-986) pg/mL Folate (8.6-58.9) ng/mL TSH, Ultra Sensitive (0.358-3.740) mIU/mL Specimen Type Urine Color Urine Appearance Urine pH (5.0-9.0) Ur Specific [place] (1.005-1.030) Urine Protein (NEGATIVE) mg/dL Urine Glucose (UA) (NEGATIVE) mg/dL Urine Ketones (NEGATIVE) mg/dL Urine Occult Blood (NEGATIVE) Urine Nitrite (NEGATIVE) Urine Bilirubin (NEGATIVE) Urine Urobilinogen (0.2-1.0) E.U./dL Ur Leukocyte Esterase (NEGATIVE) Urine RBC /HPF Urine WBC /HPF Ur Epithelial Cells /LPF Amorphous Sediment (0/HPF) /HPF Urine Bacteria (NONE TO FEW) /HPF 02/01/18 02/01/18 02/01/18 Range/Units 13:42 13:42 20:35 WBC (4.0-10.2) K/uL RBC (3.77-5.09) M/uL Hgb (11.7-15.5) g/dL Hct (34.0-46.0) % MCV (84.0-98.0) fL MCH (28.2-33.3) pg MCHC (31.7-36.0) g/dL RDW (11.2-14.1) % Plt Count (150-350) K/uL Neut % (Auto) (45.0-80.0) % Lymph % (Auto) (10.0-50.0) % [place] % (Auto) (2.0-14.0) % Eos % (Auto) (0.0-5.0) % Baso % (Auto) (0.0-2.0) % Neut # (Auto) (1.40-7.00) K/uL Lymph # (Auto) (0.50-3.50) K/uL [place] # (Auto) (0.00-1.00) K/uL Eos # (Auto) (0.00-0.50) K/uL Baso # (Auto) (0.00-0.20) K/uL PT (9.8-11.7) SEC INR APTT (22.1-29.8) SEC D-Dimer, Quantitative (0-400) ng/mL Sodium 140 (136-145) mmol/L Potassium 3.9 (3.5-5.1) mmol/L Chloride 103 (98-107) mmol/L Carbon Dioxide 21.4 (21.0-32.0) mmol/L BUN 16 (7-18) mg/dL Creatinine 0.68 (0.51-1.17) mg/dL Est Cr Clr Drug Dosing 67.32 mL/min Estimated GFR (MDRD) > 60 mL/min Glucose 119 H (74-106) mg/dL Hemoglobin A1c (4.3-5.7) % Lactic Acid 2.6 H (0.4-2.0) mmol/L Uric Acid 2.7 (2.6-7.2) mg/dL Calcium 9.0 (8.5-10.1) mg/dL Magnesium 1.9 (1.8-2.4) mg/dL Iron (50-175) ug/dL TIBC (250-450) ug/dL % Saturation Ferritin (8-388) ng/mL Total Bilirubin 0.4 (0.2-1.0) mg/dL AST 30 (15-37) U/L ALT 31 (12-78) U/L Alkaline Phosphatase 77 (46-116) IU/L Creatine Kinase 71 67 (26-308) U/L Creatine Kinase Index 1.5 2.1 (0.0-2.5) % CK-MB (CK-2) 1.10 1.40 (0.00-3.60) ng/mL Troponin I 0.000 0.004 (0.000-0.056) ng/mL NT-Pro-B Natriuret Pep 77 (0-125) pg/mL Total Protein 7.4 (6.4-8.2) g/dL Albumin 4.0 (3.4-5.0) g/dL Triglycerides (30-150) mg/dL Cholesterol (100-200) mg/dL LDL Cholesterol, Calc (0-100) mg/dL HDL Cholesterol (40-60) mg/dL Amylase 62 (25-115) U/L Lipase 120 (73-393) U/L Vitamin B12 (193-986) pg/mL Folate (8.6-58.9) ng/mL TSH, Ultra Sensitive 1.712 (0.358-3.740) mIU/mL Specimen Type Urine Color Urine Appearance Urine pH (5.0-9.0) Ur Specific [place] (1.005-1.030) Urine Protein (NEGATIVE) mg/dL Urine Glucose (UA) (NEGATIVE) mg/dL Urine Ketones (NEGATIVE) mg/dL Urine Occult Blood (NEGATIVE) Urine Nitrite (NEGATIVE) Urine Bilirubin (NEGATIVE) Urine Urobilinogen (0.2-1.0) E.U./dL Ur Leukocyte Esterase (NEGATIVE) Urine RBC /HPF Urine WBC /HPF Ur Epithelial Cells /LPF Amorphous Sediment (0/HPF) /HPF Urine Bacteria (NONE TO FEW) /HPF 02/01/18 02/02/18 02/02/18 Range/Units 20:35 07:27 07:27 WBC 6.5 (4.0-10.2) K/uL RBC 3.96 (3.77-5.09) M/uL Hgb 11.1 L (11.7-15.5) g/dL Hct 33.1 L (34.0-46.0) % MCV 83.6 L (84.0-98.0) fL MCH 28.0 L (28.2-33.3) pg MCHC 33.5 (31.7-36.0) g/dL RDW 13.2 (11.2-14.1) % Plt Count 235 (150-350) K/uL Neut % (Auto) 76.4 (45.0-80.0) % Lymph % (Auto) 14.6 (10.0-50.0) % [place] % (Auto) 8.6 (2.0-14.0) % Eos % (Auto) 0.2 (0.0-5.0) % Baso % (Auto) 0.2 (0.0-2.0) % Neut # (Auto) 4.98 (1.40-7.00) K/uL Lymph # (Auto) 0.95 (0.50-3.50) K/uL [place] # (Auto) 0.56 (0.00-1.00) K/uL Eos # (Auto) 0.01 (0.00-0.50) K/uL Baso # (Auto) 0.01 (0.00-0.20) K/uL PT (9.8-11.7) SEC INR APTT (22.1-29.8) SEC D-Dimer, Quantitative (0-400) ng/mL Sodium 140 (136-145) mmol/L Potassium 3.4 L (3.5-5.1) mmol/L Chloride 104 (98-107) mmol/L Carbon Dioxide 23.8 (21.0-32.0) mmol/L BUN 11 (7-18) mg/dL Creatinine 0.67 (0.51-1.17) mg/dL Est Cr Clr Drug Dosing 68.30 mL/min Estimated GFR (MDRD) > 60 mL/min Glucose 114 H (74-106) mg/dL Hemoglobin A1c (4.3-5.7) % Lactic Acid 1.2 (0.4-2.0) mmol/L Uric Acid (2.6-7.2) mg/dL Calcium 9.0 (8.5-10.1) mg/dL Magnesium (1.8-2.4) mg/dL Iron (50-175) ug/dL TIBC (250-450) ug/dL % Saturation Ferritin (8-388) ng/mL Total Bilirubin 0.5 (0.2-1.0) mg/dL AST 22 (15-37) U/L ALT 25 (12-78) U/L Alkaline Phosphatase 68 (46-116) IU/L Creatine Kinase 66 (26-308) U/L Creatine Kinase Index 2.0 (0.0-2.5) % CK-MB (CK-2) 1.30 (0.00-3.60) ng/mL Troponin I 0.000 (0.000-0.056) ng/mL NT-Pro-B Natriuret Pep (0-125) pg/mL Total Protein 6.9 (6.4-8.2) g/dL Albumin 3.4 (3.4-5.0) g/dL Triglycerides 52 (30-150) mg/dL Cholesterol 223 H (100-200) mg/dL LDL Cholesterol, Calc 92 (0-100) mg/dL HDL Cholesterol 121 H (40-60) mg/dL Amylase (25-115) U/L Lipase (73-393) U/L Vitamin B12 442 (193-986) pg/mL Folate 19.1 (8.6-58.9) ng/mL TSH, Ultra Sensitive (0.358-3.740) mIU/mL Specimen Type Urine Color Urine Appearance Urine pH (5.0-9.0) Ur Specific [place] (1.005-1.030) Urine Protein (NEGATIVE) mg/dL Urine Glucose (UA) (NEGATIVE) mg/dL Urine Ketones (NEGATIVE) mg/dL Urine Occult Blood (NEGATIVE) Urine Nitrite (NEGATIVE) Urine Bilirubin (NEGATIVE) Urine Urobilinogen (0.2-1.0) E.U./dL Ur Leukocyte Esterase (NEGATIVE) Urine RBC /HPF Urine WBC /HPF Ur Epithelial Cells /LPF Amorphous Sediment (0/HPF) /HPF Urine Bacteria (NONE TO FEW) /HPF 02/02/18 02/02/18 02/02/18 Range/Units 07:27 07:27 07:27 WBC (4.0-10.2) K/uL RBC (3.77-5.09) M/uL Hgb (11.7-15.5) g/dL Hct (34.0-46.0) % MCV (84.0-98.0) fL MCH (28.2-33.3) pg MCHC (31.7-36.0) g/dL RDW (11.2-14.1) % Plt Count (150-350) K/uL Neut % (Auto) (45.0-80.0) % Lymph % (Auto) (10.0-50.0) % [place] % (Auto) (2.0-14.0) % Eos % (Auto) (0.0-5.0) % Baso % (Auto) (0.0-2.0) % Neut # (Auto) (1.40-7.00) K/uL Lymph # (Auto) (0.50-3.50) K/uL [place] # (Auto) (0.00-1.00) K/uL Eos # (Auto) (0.00-0.50) K/uL Baso # (Auto) (0.00-0.20) K/uL PT (9.8-11.7) SEC INR APTT (22.1-29.8) SEC D-Dimer, Quantitative (0-400) ng/mL Sodium (136-145) mmol/L Potassium (3.5-5.1) mmol/L Chloride (98-107) mmol/L Carbon Dioxide (21.0-32.0) mmol/L BUN (7-18) mg/dL Creatinine (0.51-1.17) mg/dL Est Cr Clr Drug Dosing mL/min Estimated GFR (MDRD) mL/min Glucose (74-106) mg/dL Hemoglobin A1c 5.9 H (4.3-5.7) % Lactic Acid 2.3 H (0.4-2.0) mmol/L Uric Acid (2.6-7.2) mg/dL Calcium (8.5-10.1) mg/dL Magnesium (1.8-2.4) mg/dL Iron 47 L (50-175) ug/dL TIBC 357 (250-450) ug/dL % Saturation [id number] Ferritin 13 (8-388) ng/mL Total Bilirubin (0.2-1.0) mg/dL AST (15-37) U/L ALT (12-78) U/L Alkaline Phosphatase (46-116) IU/L Creatine Kinase (26-308) U/L Creatine Kinase Index (0.0-2.5) % CK-MB (CK-2) (0.00-3.60) ng/mL Troponin I (0.000-0.056) ng/mL NT-Pro-B Natriuret Pep (0-125) pg/mL Total Protein (6.4-8.2) g/dL Albumin (3.4-5.0) g/dL Triglycerides (30-150) mg/dL Cholesterol (100-200) mg/dL LDL Cholesterol, Calc (0-100) mg/dL HDL Cholesterol (40-60) mg/dL Amylase (25-115) U/L Lipase (73-393) U/L Vitamin B12 (193-986) pg/mL Folate (8.6-58.9) ng/mL TSH, Ultra Sensitive (0.358-3.740) mIU/mL Specimen Type Urine Color Urine Appearance Urine pH (5.0-9.0) Ur Specific [place] (1.005-1.030) Urine Protein (NEGATIVE) mg/dL Urine Glucose (UA) (NEGATIVE) mg/dL Urine Ketones (NEGATIVE) mg/dL Urine Occult Blood (NEGATIVE) Urine Nitrite (NEGATIVE) Urine Bilirubin (NEGATIVE) Urine Urobilinogen (0.2-1.0) E.U./dL Ur Leukocyte Esterase (NEGATIVE) Urine RBC /HPF Urine WBC /HPF Ur Epithelial Cells /LPF Amorphous Sediment (0/HPF) /HPF Urine Bacteria (NONE TO FEW) /HPF 02/03/18 02/03/18 02/03/18 Range/Units 06:50 06:50 06:50 WBC 7.5 (4.0-10.2) K/uL RBC 3.45 L (3.77-5.09) M/uL Hgb 9.7 L (11.7-15.5) g/dL Hct 29.6 L (34.0-46.0) % MCV 85.8 (84.0-98.0) fL MCH 28.1 L (28.2-33.3) pg MCHC 32.8 (31.7-36.0) g/dL RDW 13.5 (11.2-14.1) % Plt Count 196 (150-350) K/uL Neut % (Auto) 66.8 (45.0-80.0) % Lymph % (Auto) 20.3 (10.0-50.0) % [place] % (Auto) 12.6 (2.0-14.0) % Eos % (Auto) 0.0 (0.0-5.0) % Baso % (Auto) 0.3 (0.0-2.0) % Neut # (Auto) 5.03 (1.40-7.00) K/uL Lymph # (Auto) 1.53 (0.50-3.50) K/uL [place] # (Auto) 0.95 (0.00-1.00) K/uL Eos # (Auto) 0.00 (0.00-0.50) K/uL Baso # (Auto) 0.02 (0.00-0.20) K/uL PT (9.8-11.7) SEC INR APTT (22.1-29.8) SEC D-Dimer, Quantitative (0-400) ng/mL Sodium 140 (136-145) mmol/L Potassium 4.3 (3.5-5.1) mmol/L Chloride 108 H (98-107) mmol/L Carbon Dioxide 24.7 (21.0-32.0) mmol/L BUN 9 (7-18) mg/dL Creatinine 0.69 (0.51-1.17) mg/dL Est Cr Clr Drug Dosing 66.32 mL/min Estimated GFR (MDRD) > 60 mL/min Glucose 92 (74-106) mg/dL Hemoglobin A1c (4.3-5.7) % Lactic Acid 1.1 (0.4-2.0) mmol/L Uric Acid (2.6-7.2) mg/dL Calcium 8.5 (8.5-10.1) mg/dL Magnesium (1.8-2.4) mg/dL Iron (50-175) ug/dL TIBC (250-450) ug/dL % Saturation Ferritin (8-388) ng/mL Total Bilirubin (0.2-1.0) mg/dL AST (15-37) U/L ALT (12-78) U/L Alkaline Phosphatase (46-116) IU/L Creatine Kinase 87 (26-308) U/L Creatine Kinase Index 2.0 (0.0-2.5) % CK-MB (CK-2) 1.70 (0.00-3.60) ng/mL Troponin I 0.000 (0.000-0.056) ng/mL NT-Pro-B Natriuret Pep (0-125) pg/mL Total Protein (6.4-8.2) g/dL Albumin (3.4-5.0) g/dL Triglycerides (30-150) mg/dL Cholesterol (100-200) mg/dL LDL Cholesterol, Calc (0-100) mg/dL HDL Cholesterol (40-60) mg/dL Amylase (25-115) U/L Lipase (73-393) U/L Vitamin B12 (193-986) pg/mL Folate (8.6-58.9) ng/mL TSH, Ultra Sensitive (0.358-3.740) mIU/mL Specimen Type Urine Color Urine Appearance Urine pH (5.0-9.0) Ur Specific [place] (1.005-1.030) Urine Protein (NEGATIVE) mg/dL Urine Glucose (UA) (NEGATIVE) mg/dL Urine Ketones (NEGATIVE) mg/dL Urine Occult Blood (NEGATIVE) Urine Nitrite (NEGATIVE) Urine Bilirubin (NEGATIVE) Urine Urobilinogen (0.2-1.0) E.U./dL Ur Leukocyte Esterase (NEGATIVE) Urine RBC /HPF Urine WBC /HPF Ur Epithelial Cells /LPF Amorphous Sediment (0/HPF) /HPF Urine Bacteria (NONE TO FEW) /HPF 02/03/18 02/04/18 02/04/18 Range/Units 10:30 06:55 06:55 WBC 4.4 (4.0-10.2) K/uL RBC 3.57 L (3.77-5.09) M/uL Hgb 10.0 L (11.7-15.5) g/dL Hct 31.0 L (34.0-46.0) % MCV 86.8 (84.0-98.0) fL MCH 28.0 L (28.2-33.3) pg MCHC 32.3 (31.7-36.0) g/dL RDW 13.7 (11.2-14.1) % Plt Count 173 (150-350) K/uL Neut % (Auto) 58.7 (45.0-80.0) % Lymph % (Auto) 30.0 (10.0-50.0) % [place] % (Auto) 10.6 (2.0-14.0) % Eos % (Auto) 0.2 (0.0-5.0) % Baso % (Auto) 0.5 (0.0-2.0) % Neut # (Auto) 2.56 (1.40-7.00) K/uL Lymph # (Auto) 1.31 (0.50-3.50) K/uL [place] # (Auto) 0.46 (0.00-1.00) K/uL Eos # (Auto) 0.01 (0.00-0.50) K/uL Baso # (Auto) 0.02 (0.00-0.20) K/uL PT (9.8-11.7) SEC INR APTT (22.1-29.8) SEC D-Dimer, Quantitative (0-400) ng/mL Sodium 143 (136-145) mmol/L Potassium 4.2 (3.5-5.1) mmol/L Chloride 111 H (98-107) mmol/L Carbon Dioxide 25.7 (21.0-32.0) mmol/L BUN 5 L (7-18) mg/dL Creatinine 0.76 (0.51-1.17) mg/dL Est Cr Clr Drug Dosing 60.21 mL/min Estimated GFR (MDRD) > 60 mL/min Glucose 92 (74-106) mg/dL Hemoglobin A1c (4.3-5.7) % Lactic Acid (0.4-2.0) mmol/L Uric Acid (2.6-7.2) mg/dL Calcium 8.7 (8.5-10.1) mg/dL Magnesium (1.8-2.4) mg/dL Iron (50-175) ug/dL TIBC (250-450) ug/dL % Saturation Ferritin (8-388) ng/mL Total Bilirubin (0.2-1.0) mg/dL AST (15-37) U/L ALT (12-78) U/L Alkaline Phosphatase (46-116) IU/L Creatine Kinase (26-308) U/L Creatine Kinase Index (0.0-2.5) % CK-MB (CK-2) (0.00-3.60) ng/mL Troponin I (0.000-0.056) ng/mL NT-Pro-B Natriuret Pep (0-125) pg/mL Total Protein (6.4-8.2) g/dL Albumin (3.4-5.0) g/dL Triglycerides (30-150) mg/dL Cholesterol (100-200) mg/dL LDL Cholesterol, Calc (0-100) mg/dL HDL Cholesterol (40-60) mg/dL Amylase (25-115) U/L Lipase (73-393) U/L Vitamin B12 (193-986) pg/mL Folate (8.6-58.9) ng/mL TSH, Ultra Sensitive (0.358-3.740) mIU/mL Specimen Type Urincc Urine Color Yellow Urine Appearance Clear Urine pH 6.5 (5.0-9.0) Ur Specific [place] 1.020 (1.005-1.030) Urine Protein Negative (NEGATIVE) mg/dL Urine Glucose (UA) Negative (NEGATIVE) mg/dL Urine Ketones Trace H (NEGATIVE) mg/dL Urine Occult Blood Moderate H (NEGATIVE) Urine Nitrite Positive H (NEGATIVE) Urine Bilirubin Negative (NEGATIVE) Urine Urobilinogen 0.2 (0.2-1.0) E.U./dL Ur Leukocyte Esterase Moderate H (NEGATIVE) Urine RBC 0-5 /HPF Urine WBC 20-30 H /HPF Ur Epithelial Cells Few /LPF Amorphous Sediment Moderate H (0/HPF) /HPF Urine Bacteria Moderate H (NONE TO FEW) /HPF K[facility]ORE Results - Last 24 hrs: Microbiology 02/03/18 10:30 Urine Culture - Final Urine, Clean Catch MIXED MATT SUGGESTIVE OF CONTAMINATION. Microbiology 02/03/18 10:30 Urine, Clean Catch Urine Culture - Final MIXED MATT SUGGESTIVE OF CONTAMINATION. 02/02/18 06:15 Stool / Feces Helicobacter pylori Antigen - Final 02/02/18 10:52 Stool / Feces Stool Occult Blood (KISHORE) - Final NEGATIVE OCCULT BLOOD 02/02/18 06:15 Stool / Feces Stool Occult Blood (KISHORE) - Final NEGATIVE OCCULT BLOOD H. pylori stool antigen was negative. Med Orders - Current: Current Medications Acetaminophen (Tylenol) 650 mg PO Q4H PRN PRN Reason: Pain Last Admin: 02/05/18 08:03 Dose: 650 mg Artificial Tears (Liquitears 1.4% Ophth Soln) 0 ml EYEBOTH QID PRN PRN Reason: Dry Eyes Citalopram Hydrobromide (Celexa) 40 mg PO DAILY [facility] Last Admin: 02/05/18 08:01 Dose: 40 mg Potassium Chloride/Dextrose/Sod Cl (D5 1/2 Ns W/ 40 Meq/L Kcl) 1,000 mls @ 125 mls/hr IV ASDIRECTED [facility] Last Admin: 02/05/18 03:40 Dose: 100 mls/hr Ceftriaxone Sodium 1 gm/ (Sodium Chloride) 100 mls @ 200 mls/hr IV Q12H [facility] Last Admin: 02/05/18 12:02 Dose: 200 mls/hr Lorazepam (Ativan) 0.5 mg PO BID [facility] Last Admin: 02/05/18 08:01 Dose: 0.5 mg Meclizine HCl (Antivert) 25 mg PO Q6H PRN PRN Reason: Dizziness Last Admin: 02/05/18 08:03 Dose: 25 mg Mirtazapine (Remeron) 15 mg PO BEDTIME [facility] Last Admin: 02/04/18 19:05 Dose: 15 mg Ondansetron HCl (Zofran) 4 mg IVPUSH Q6H PRN PRN Reason: Nausea/Vomiting Last Admin: 02/05/18 08:05 Dose: 4 mg Pantoprazole Sodium (Protonix Iv) 40 mg IVPUSH Q12H [facility] Last Admin: 02/05/18 05:52 Dose: 40 mg Sodium Chloride (Saline Flush) 10 ml FLUSH ASDIRECTED PRN PRN Reason: Keep Vein Open Last Admin: 02/05/18 05:52 Dose: 10 ml Sodium Chloride (Saline Flush) 10 ml FLUSH Q12HR PRN PRN Reason: Keep Vein Open Last Admin: 02/02/18 17:07 Dose: 10 ml Temazepam (Restoril) 15 mg PO BEDTIME PRN PRN Reason: Insomnia Last Admin: 02/04/18 22:08 Dose: 15 mg Trolamine Salicylate (Aspercreme 10%) 1 gm TOP QID [facility] Last Admin: 02/05/18 12:03 Dose: Not Given Discontinued Medications Aspirin (Aspirin) 324 mg CHEW ONETIME ONE Stop: 02/01/18 13:45 Last Admin: 02/01/18 13:53 Dose: 324 mg Aspirin (Aspirin) Confirm Administered Dose 324 mg .ROUTE .STK-MED ONE Stop: 02/01/18 13:53 Last Admin: 02/01/18 13:58 Dose: Not Given Bisacodyl (Dulcolax) 10 mg PO ONETIME ONE Stop: 02/03/18 18:01 Last Admin: 02/03/18 17:37 Dose: 10 mg Famotidine (Pepcid) 40 mg IVPUSH ONETIME ONE Stop: 02/01/18 13:45 Last Admin: 02/01/18 13:52 Dose: 40 mg Fentanyl (Sublimaze) Confirm Administered Dose 100 mcg .ROUTE .STK-MED ONE Stop: 02/05/18 13:29 Ferrous Sulfate (Ferrous Sulfate) 325 mg PO TIDMEALS [facility] Lactated Ringer's (Ringers, Lactated) 1,000 mls @ 100 mls/hr IV ASDIRECTED [facility] Last Admin: 02/02/18 00:38 Dose: 100 mls/hr Iopamidol (Isovue-300 (61%)) 100 ml IVPUSH ONETIME ONE Stop: 02/03/18 10:01 Last Admin: 02/03/18 12:27 Dose: Not Given Iopamidol (Isovue-370 (76%)) 100 ml IVPUSH ONETIME ONE Stop: 02/03/18 10:46 Last Admin: 02/03/18 16:06 Dose: 100 ml Meclizine HCl (Antivert) 25 mg PO ONETIME ONE Stop: 02/01/18 14:23 Last Admin: 02/01/18 14:25 Dose: 25 mg Methyl Salicylate (Icy Hot Cream) 1 gm TOP BID [facility] Last Admin: 02/03/18 08:45 Dose: 1 applic Methylprednisolone Sodium Succinate (Solu-Medrol) 125 mg IVPUSH ONETIME ONE Stop: 02/02/18 11:01 Last Admin: 02/02/18 11:57 Dose: 125 mg Metoclopramide HCl (Reglan) 10 mg IVPUSH ONETIME ONE Stop: 02/01/18 14:23 Last Admin: 02/01/18 14:26 Dose: 10 mg Midazolam HCl (Versed 1 Mg/Ml) Confirm Administered Dose 2 mg .ROUTE .STK-MED ONE Stop: 02/05/18 13:30 Ondansetron HCl (Zofran) 4 mg IVPUSH ONETIME ONE Stop: 02/01/18 13:47 Last Admin: 02/01/18 13:51 Dose: 4 mg Polyethylene Glycol (Miralax) 0 gm PO ONETIME ONE Stop: 02/04/18 12:01 Last Admin: 02/04/18 11:37 Dose: 238 gm Potassium Chloride (Klor-Con M20) 20 meq PO ONETIME ONE Stop: 02/02/18 12:01 Last Admin: 02/02/18 11:58 Dose: 20 meq Propofol (Diprivan 20 Ml) Confirm Administered Dose 400 mg .ROUTE .STK-MED ONE Stop: 02/05/18 13:30 Ticagrelor (Brilinta) 180 mg PO ONETIME ONE Stop: 02/01/18 13:45 Last Admin: 02/01/18 13:53 Dose: 180 mg - Exam Quality Assessment: Reports: DVT Prophylaxis. Denies: Central Line/PICC, Urine Catheter, Skin Breakdown, Restraints General: Reports: Alert, Oriented, Cooperative, No Acute Distress HEENT: Reports: Pupils Equal, Pupils Reactive, EOMI, Mucous Membr. Moist/Hungry Horse. Denies: Scleral Icterus Neck: Reports: Supple, Trachea Midline, No JVD, No Thyromegaly. Denies: +2 Carotid Pulse wo Bruit, Lymphadenopathy Lungs: Reports: Clear to Auscultation, Normal Respiratory Effort. Denies: Rub Cardiovascular: Reports: Regular Rate, Regular Rhythm, No Murmurs. Denies: Gallops, Rubs GI/Abdominal Exam: Normal Bowel Sounds, Soft, Non-Tender, No Organomegaly, No Distention, No Abnormal Bruit, No Mass. No: Guarding (Female) Exam: Deferred Rectal (Female) Exam: Deferred Back Exam: Reports: Normal Inspection, Full Range of Motion. Denies: CVA Tenderness (R), Muscle Spasm, Paraspinal Tenderness Extremities: Normal Range of Motion, No Pedal Edema, Normal Capillary Refill, Other (Mild muscle spasms in the posterior left neck and left scapular region) Skin: Reports: Warm, Dry, Intact Neurological: Reports: No New Focal Deficit, Other (No Clinical orthostasis) Psy/Mental Status: Reports: Alert, Anxious (Moderate), Depressed (Moderate). Denies: Agitated, Suicidal Ideation, Homicidal Ideation, Hallucinations, Withdrawal Symptoms
[2018-02-05] MEDS ORDERED: Furosemide 40 MG/4 ML VIAL IVPUSH ONE (14:47)
--- NOTE | 2018-02-05 15:30 | OR ---
Date of Procedure: 02/05/2018 PREOPERATIVE DIAGNOSIS: Iron-deficiency anemia. POSTOPERATIVE DIAGNOSES: 1. Normal EGD. 2. Normal colonoscopy. PROCEDURES: 1. EGD. 2. Colonoscopy. ANESTHESIA: IV sedation. DESCRIPTION OF PROCEDURE: The patient was brought to the procedure room, where she was placed on her left side and IV sedation administered. Oral bite block was placed and the upper endoscope advanced into the esophagus under direct vision without difficulty. The vocal cords were viewed and were normal. Scope was advanced to the 3rd portion of the duodenum. Duodenum and pylorus were normal. Antrum and body of the stomach were normal. Retroflexion revealed a normal-appearing fundus. Lower esophageal sphincter was weak and I can visualize into the distal esophagus upon retroflexion, but there was no evidence of reflux esophagitis. Squamocolumnar junction appears normal. Air was removed from the stomach and the scope withdrawn through the remaining esophagus which appears normal. The patient tolerated this portion of the procedure well. Next, colonoscopy was performed after digital rectal exam was done which was normal. Colonoscope was inserted and advanced to the level of the cecum without difficulty. Cecal position was confirmed by identifying the appendiceal lumen and the ileocecal valve. Prep was good and surfaces were well visualized. Upon withdrawing the scope, the ascending, transverse, and descending colon were normal in appearance. Sigmoid colon was somewhat tortuous, but otherwise normal. No diverticula were seen. The rectum was normal and retroflexion was normal. Air was removed and the scope withdrawn. The patient tolerated the procedure well and returned to recovery in stable condition. No source of the patient's anemia was identified. YUMIKO GALLARDO MD /[id number]
== END 2018-02-05 16:16 | disposition home or self-care (01) | DRG 149 ==
LOC: LL.ED 13:38 → LL.MS 14:50
PROVIDERS: ADMIT Family Medicine; ATTEND Family Medicine
PROC: 0DJ08ZZ Inspection of Upper Intestinal Tract, Via Natural or Artificial Opening Endoscopic (ICD-10-PCS; principal; 2018-02-05)
PROC: 0DJD8ZZ Inspection of Lower Intestinal Tract, Via Natural or Artificial Opening Endoscopic (ICD-10-PCS; principal; 2018-02-05)
DX: H83.09 Labyrinthitis, unspecified ear (principal); E87.2 Acidosis; R11.2 Nausea with vomiting, unspecified; A08.4 Viral intestinal infection, unspecified; M19.90 Unspecified osteoarthritis, unspecified site; R07.9 Chest pain, unspecified; F41.8 Other specified anxiety disorders; K59.00 Constipation, unspecified; R79.1 Abnormal coagulation profile; J44.9 Chronic obstructive pulmonary disease, unspecified; F41.9 Anxiety disorder, unspecified; F32.9 Major depressive disorder, single episode, unspecified; E87.6 Hypokalemia; D50.9 Iron deficiency anemia, unspecified; M15.9 Polyosteoarthritis, unspecified; G25.81 Restless legs syndrome; E78.00 Pure hypercholesterolemia, unspecified; G89.29 Other chronic pain; M54.9 Dorsalgia, unspecified; M54.2 Cervicalgia; R61 Generalized hyperhidrosis; R42 Dizziness and giddiness; R53.1 Weakness; M81.0 Age-related osteoporosis without current pathological fracture; M41.9 Scoliosis, unspecified; M85.80 Other specified disorders of bone density and structure, unspecified site; H04.129 Dry eye syndrome of unspecified lacrimal gland; H54.7 Unspecified visual loss; Z87.440 Personal history of urinary (tract) infections; Z88.1 Allergy status to other antibiotic agents; Z88.2 Allergy status to sulfonamides; Z79.899 Other long term (current) drug therapy
CPT/HCPCS: 36415; 70450; 71275; 74022; 74177; 80048; 80053; 80061; 81001; 82150; 82272; 82550; 82553; 82607; 82728; 82746; 83036; 83540; 83550; 83605; 83690; 83735; 83880; 84443; 84484; 84550; 85025; 85379; 85610; 85730; 87086; 87338; 93005; 96374; 96375; 97112-GP; 97140-GP; 97161-GP; 99285; A9270-GY; C9113; J0696; J2250; J2405; J2704; J2765; J2930; J3010; J3480; J7050; J7120; Q9967; S0028

== ENCOUNTER 2023-09-06 09:04 | Emergency (ER) | payer MEDICARE ==
[2023-09-06] MEDS ORDERED: Sodium Chloride 0.9% 10 ML Syringe FLUSH PRN (09:12)
[2023-09-06 09:45] LABS: BASOPHILS ABSOLUTE AUTO 0.04 K/uL (0.00-0.20); BASOPHILS PERCENT AUTO 0.8 % (0.0-2.0); EOSINOPHILS ABSOLUTE AUTO 0.08 K/uL (0.00-0.50); EOSINOPHILS PERCENT AUTO 1.5 % (0.0-5.0); HEMATOCRIT 35.1 % (34.0-46.0); LYMPHOCYTES ABSOLUTE AUTO 1.73 K/uL (0.50-3.50); LYMPHOCYTES PERCENT AUTO 32.5 % (10.0-50.0); MEAN CORPUSCULAR HEMOGLOBIN 24.8 pg (28.2-33.3); MEAN CORPUSCULAR HGB CONC 31.3 g/dL (31.7-36.0); MEAN CORPUSCULAR VOLUME 79.1 fL (84.0-98.0); MONOCYTES ABSOLUTE AUTO 0.32 K/uL (0.00-1.00); NEUTROPHILS ABSOLUTE AUTO 3.16 K/uL (1.40-7.00); NEUTROPHILS PERCENT AUTO 59.2 % (45.0-80.0); PLATELET COUNT,PLT 293 K/uL (150-350); RED BLOOD CELL COUNT 4.44 M/uL (3.77-5.09); RED CELL DISTRIBUTION WIDTH 14.7 % (11.2-14.1); WHITE BLOOD CELL COUNT,WBC 5.3 K/uL (4.0-10.2)
[2023-09-06 09:52] LABS: ALBUMIN 3.6 g/dL (3.4-5.0); ANION GAP 10.4 meq/L (7-15); BILIRUBIN TOTAL 0.4 mg/dL (0.2-1.0); CALCIUM 8.9 mg/dL (8.5-10.1); CARBON DIOXIDE,CO2 25.6 mmol/L (21.0-32.0); CREATININE 0.67 mg/dL (0.51-1.17); EST CRCL DRUG DOSING (CG) 62.78 mL/min; INR 0.9 (0.9-1.1); POTASSIUM,K 4.1 mmol/L (3.5-5.1); PROTEIN TOTAL,TP 7.3 g/dL (6.4-8.2); PROTHROMBIN TIME 9.2 SEC (9.0-11.1)
[2023-09-06 09:57] LABS: CORONAVIRUS COVID-19 NAA NEGATIVE (NEGATIVE); INFLUENZA A NAA NEGATIVE (NEGATIVE); INFLUENZA B NAA NEGATIVE (NEGATIVE); RESPIRATORY SYNCYTIAL VIR NAA NEGATIVE (NEGATIVE)
[2023-09-06] MEDS ORDERED: Sodium Chloride 0.9% 1,000 ML IV SCH (10:15)
[2023-09-06 10:20] LABS: APPEARANCE,URINE SLIGHTLY CLOUDY; BILIRUBIN,URINE NEGATIVE (NEGATIVE); COLOR,URINE YELLOW; GLUCOSE,URINE NEGATIVE (NEGATIVE); KETONES,URINE NEGATIVE (NEGATIVE); OCCULT BLOOD,URINE TRACE-INTACT (NEGATIVE); PH,URINE 7.5 (5.0-9.0); PROTEIN,URINE 30 mg/dL (NEGATIVE); UROBILINOGEN,URINE 0.2 E.U./dL (0.2-1.0)
[2023-09-06 10:31] LABS: LEUKOCYTE ESTERASE,URINE TRACE (NEGATIVE); NITRITE,URINE NEGATIVE (NEGATIVE)
[2023-09-06 10:32] LABS: RBC,URINE 0-5 /HPF
[2023-09-06 10:33] LABS: AMORPHOUS SEDIMENT,URINE FEW /HPF (0/HPF); BACTERIA,URINE FEW /HPF (NONE TO FEW); EPITHELIAL CELLS,URINE FEW /LPF; MUCUS,URINE FEW /LPF (NEGATIVE); WBC,URINE 20-30 /HPF
[2023-09-06] MEDS ORDERED: Take Home: Meclizine HCl 25 MG, 6 Tab Pack PO ONE (11:24)
[2023-09-06] MEDS ORDERED: Take Home: Ondansetron 4 MG Tab.DIS, 5 Tab Pack PO ONE (11:24)
[2023-09-06] MEDS ORDERED: Scopalamine 1mg/3day Transdermal Patch TRDERM PRN (11:47)
== END 2023-09-06 12:30 | disposition home or self-care (01) ==
LOC: LL.ED 09:04
DX: R42 Dizziness and giddiness (principal); N30.00 Acute cystitis without hematuria; E78.00 Pure hypercholesterolemia, unspecified; E78.5 Hyperlipidemia, unspecified; Z79.899 Other long term (current) drug therapy; Z20.822 Contact with and (suspected) exposure to COVID-19
CPT/HCPCS: 0241U; 36415; 80053; 81001; 83880; 85025; 85610; 87086; 93005; 93010; 96360; 99284; 99284-25; A9270-GY; J7030

== ENCOUNTER 2024-01-02 08:00 | Emergency (ER) | payer MEDICARE ==
[2024-01-02] MEDS ORDERED: Sodium Chloride 0.9% 10 ML Syringe FLUSH PRN (08:55)
[2024-01-02] MEDS: Lactated Ringers 1,000 ML IV ONE (08:59)
[2024-01-02 09:01] LABS: BASOPHILS ABSOLUTE AUTO 0.02 K/uL (0.00-0.20); BASOPHILS PERCENT AUTO 0.4 % (0.0-2.0); EOSINOPHILS ABSOLUTE AUTO 0.12 K/uL (0.00-0.50); EOSINOPHILS PERCENT AUTO 2.4 % (0.0-5.0); HEMATOCRIT 39.3 % (34.0-46.0); HEMOGLOBIN 13.1 g/dL (11.7-15.5); LYMPHOCYTES ABSOLUTE AUTO 2.09 K/uL (0.50-3.50); MEAN CORPUSCULAR HEMOGLOBIN 27.6 pg (28.2-33.3); MEAN CORPUSCULAR HGB CONC 33.3 g/dL (31.7-36.0); MEAN CORPUSCULAR VOLUME 82.9 fL (84.0-98.0); MONOCYTES ABSOLUTE AUTO 0.45 K/uL (0.00-1.00); NEUTROPHILS PERCENT AUTO 46.2 % (45.0-80.0); PLATELET COUNT,PLT 196 K/uL (150-350); RED BLOOD CELL COUNT 4.74 M/uL (3.77-5.09); RED CELL DISTRIBUTION WIDTH 15.2 % (11.2-14.1)
[2024-01-02] MEDS: Prochlorperazine 10 MG/2 ML SDV IV ONE (09:02)
[2024-01-02 09:13] LABS: ALANINE AMINOTRANSFERASE,ALT 20 U/L (12-78); ALBUMIN 3.6 g/dL (3.4-5.0); ALKALINE PHOSPHATASE 70 IU/L (46-116); ANION GAP 10.7 meq/L (7-15); ASPARTATE AMNIOTRANSFERASE,AST 17 U/L (15-37); BILIRUBIN TOTAL 0.4 mg/dL (0.2-1.0); BLOOD UREA NITROGEN,BUN 15 mg/dL (7-18); CALCIUM 8.6 mg/dL (8.5-10.1); CARBON DIOXIDE,CO2 24.3 mmol/L (21.0-32.0); CHLORIDE,CL 106 mmol/L (98-107); GLUCOSE RANDOM 103 mg/dL (70-99); POTASSIUM,K 3.7 mmol/L (3.5-5.1); SODIUM,NA 141 mmol/L (136-145)
[2024-01-02 09:15] LABS: APPEARANCE,URINE CLOUDY; BILIRUBIN,URINE NEGATIVE (NEGATIVE); COLOR,URINE YELLOW; ESTIMATED GFR 92 mL/min (>=60); GLUCOSE,URINE NEGATIVE (NEGATIVE); KETONES,URINE NEGATIVE (NEGATIVE); NITRITE,URINE NEGATIVE (NEGATIVE); OCCULT BLOOD,URINE TRACE-INTACT (NEGATIVE); PH,URINE 7.5 (5.0-9.0); PROTEIN,URINE NEGATIVE (NEGATIVE); UROBILINOGEN,URINE 0.2 E.U./dL (0.2-1.0)
[2024-01-02 09:23] LABS: INFLUENZA A NAA NEGATIVE (NEGATIVE); INFLUENZA B NAA NEGATIVE (NEGATIVE); RESPIRATORY SYNCYTIAL VIR NAA NEGATIVE (NEGATIVE)
[2024-01-02 09:27] LABS: CORONAVIRUS COVID-19 NAA POSITIVE (NEGATIVE)
[2024-01-02 09:28] LABS: BACTERIA,URINE RARE /HPF (NONE TO FEW); LEUKOCYTE ESTERASE,URINE NEGATIVE (NEGATIVE); RBC,URINE 0-5 /HPF; WBC,URINE 0-5 /HPF
[2024-01-02] MEDS: Ketorolac 15 MG/ML SDV IVPUSH ONE (09:40)
[2024-01-02] MEDS: Meclizine 25 MG Tab PO ONE (10:29)
== END 2024-01-02 10:40 | disposition home or self-care (01) ==
LOC: LL.ED 08:00
DX: U07.1 COVID-19 (principal); E86.0 Dehydration; R42 Dizziness and giddiness; E78.00 Pure hypercholesterolemia, unspecified; Z79.899 Other long term (current) drug therapy; Z88.2 Allergy status to sulfonamides
CPT/HCPCS: 0241U; 36415; 80053; 81001; 85025; 96361; 96374; 96375; 99284; 99284-25; A9270-GY; J0780; J1885; J7120

== ENCOUNTER 2025-03-07 07:30 | Emergency (ER) | payer MEDICARE ==
[2025-03-07] MEDS: Meclizine 25 MG Tab PO ONE (07:45)
== END 2025-03-07 08:50 | disposition home or self-care (01) ==
LOC: LL.ED 07:30
DX: R42 Dizziness and giddiness (principal); J39.2 Other diseases of pharynx; E78.00 Pure hypercholesterolemia, unspecified; Z79.899 Other long term (current) drug therapy; Z88.2 Allergy status to sulfonamides; Z88.8 Allergy status to other drugs, medicaments and biological substances
CPT/HCPCS: 99283; A9270; 99284